=== PATIENT | female | born 2005 | race Caucasian/White ===

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

== ENCOUNTER 2023-03-15 13:38 | Emergency (ER) | payer MEDICAID, SELFPAY ==
[2023-03-15 13:47] VITALS: BP 130/76; PULSE 117; RESP 16; TEMP 37; O2SAT 98; BMI 20.7
--- NOTE | 2023-03-15 13:50 | ED.GENADULT ---
HPI - General Adult General Chief complaint: Upper Respiratory Symptoms Stated complaint: throat pain, trouble swallowing and speaking Time Seen by Provider: 03/15/23 14:45 Source: patient, RN notes reviewed and old records reviewed Mode of arrival: ambulatory Limitations: no limitations History of Present Illness HPI narrative: 17-year-old female presents for evaluation of sore throat over last 2 days She also reports subjective fevers and chills She reports pain with swallowing and speaking. She is able to speak and manage her secretions She reports a history of strep throat this past fall and was treated with antibiotics Denies any known sick contacts Related Data Previous Rx's Medication Instructions Recorded amoxicillin 875 mg-potassium 1 tab PO Q12H #14 tabs 03/15/23 clavulanate 125 mg tablet Allergies Allergy/AdvReac Type Severity Reaction Status Date / Time No Known Allergies Allergy Verified 03/15/23 13:47 Review of Systems Constitutional: Constitutional: Reports chills and Reports fever(s) ENT: Reports sore throat and Denies throat swelling Cardiovascular: Cardiovascular: Denies dyspnea Respiratory: Respiratory: Denies cough and Denies dyspnea Musculoskeletal: Musculoskeletal: Denies back pain Allergic/Immunologic: Allergic/Immunologic: Denies throat swelling PMFSH Social History Social History Advance Directives: No Physical Exam ED Vital Signs: Vital Signs - 24 hr 03/15/23 13:47 Temperature 98.6 F Pulse Rate 117 H Respiratory Rate 16 Blood Pressure 130/76 Pulse Oximetry 98 Oxygen Delivery Method Room Air BMI result Body Mass Index 20.7 Const General: healthy appearing, comfortable, no acute distress, alert and awake Nutritional Appearance: well nourished Orientation/consciousness: patient oriented x3 HENMT Other: Patient has bilateral tonsillar hypertrophy with whitish exudates and erythematous oropharynx. No evidence of peritonsillar abscess. And remains widely patent Head: Yes normocephalic and Yes atraumatic Eyes Eyelids: Yes eyelids normal Conjunctivae: conjunctivae normal Sclerae: sclerae normal Corneas: corneas normal Pupils: Equal, round and reactive pupils present EOM: EOMs intact bilaterally Neck Neck: Yes full ROM Resp Effort & Inspection: normal respiratory effort, able to speak in complete sentences and not labored Neuro General: patient oriented x3 Cranial nerves: Yes Equal, round and reactive pupils present and Yes Bilaterally intact EOM present Cognition (Neuro): normal cognition Extrem Other: Moving all extremities well without any obvious deformities Course Course Course Narrative: RME- 17 year female presents for evaluation sore throat that started yesterday. She reports difficulty speaking and pain with swallowing. Reports subjective fevers take her temperature. She reports she had a similar episode last fall was treated for strep throat. Plan for swabs. Medical Decision Making Medical Decision Making [facility] Narrative: 17-year-old female presents for evaluation sore throat. She tested positive for strep throat. Will treat with Augmentin b.i.d. x7 days. Differential Diagnosis Differential Diagnoses: The differential diagnosis associated with the presentation includes Strep throat Pharyngitis Upper respiratory infection Influenza COVID-19 Lab Data Labs: Lab Results 03/15/23 Range/Units 14:19 COVID-19 (JEVON) Negative (Negative) COVID-19 Clin Com See Note S. pyogenes GrpA GEORGE Positive A (Negative) Discharge Plan Discharge Clinical Impression: Acute streptococcal pharyngitis Patient Disposition: Home, Self-Care Instructions: Strep Throat (ED) Additional Instructions: You tested positive for strep throat Take Augmentin twice daily for 1 week You may use Motrin/Tylenol for fevers, body aches You may also use saltwater gargles Return for new or worsening symptoms I recommend that you change your toothbrush after you finish her last dose of antibiotics Prescriptions: New amoxicillin-pot clavulanate 875-125 mg tablet 1 tab PO Q12H Qty: 14 0RF Stand Alone Forms: Work/School Release
[2023-03-15 14:38] LABS: IDNOW Serial# 08D9AD1C; Strep A Nucleic Acid Positive (Negative)
[2023-03-15 14:46] LABS: COVID-19 Test Negative (Negative); IDNOW Serial# 9DB6401D
[2023-03-15 15:08] LABS: IDNOW Serial# 58CA691E; Influenza A Negative (Negative); Influenza B2 Negative (Negative)
== END 2023-03-15 14:54 | disposition home or self-care (01) ==
PROVIDERS: Physician Assistant; Emergency Provider Emergency Medicine Emergency Medical Services; PCP Pediatrics
DX: J02.0 Streptococcal pharyngitis (principal); Z11.52 Encounter for screening for COVID-19
CPT/HCPCS: 87502; 87635; 87651; 99282; 99283

== ENCOUNTER 2024-01-20 19:30 | Emergency (ER) | payer MEDICAID, SELFPAY ==
[2024-01-20 19:49] VITALS: BP 107/57; PULSE 108; RESP 20; TEMP 37.1; O2SAT 99; BMI 21.3
--- NOTE | 2024-01-20 19:52 | ED_ITS ---
HPI - General Adult General Chief complaint: Wound/Laceration Stated complaint: LT thumb lac Time Seen by Provider: 01/20/24 22:25 History of Present Illness ED Provider: Kamilah WHITE narrative: The patient is a 18-year-old female who was preparing some vegetables using a mandolin slicer. She accidentally sliced off the tip of her left thumb and had bleeding that would not stop. Related Data Previous Rx's ?Medication ?Instructions ?Recorded amoxicillin 875 mg-potassium 1 tab PO Q12H #14 tabs 03/15/23 clavulanate 125 mg tablet Allergies Allergy/AdvReac Type Severity Reaction Status Date / Time No Known Allergies Allergy Verified 01/20/24 19:53 Review of Systems Review of Systems: Yes all other systems are reviewed and are negative [facility] Social History Social History Smoked in Last 30 Days: Yes Substance Use Type: Marijuana Advance Directives: No Advance Directives Information Provided: No Do you have a plan to hurt others: No Plan Patient : No Physical Exam ED Vital Signs: Vital Signs - 24 hr 01/20/24 19:49 01/20/24 22:12 01/20/24 23:22 Temperature 98.8 F 98.5 F 98.5 F Pulse Rate 108 H 93 88 Respiratory Rate 20 15 16 Blood Pressure 107/57 L 115/46 L 98/52 L Pulse Oximetry 99 97 98 Oxygen Delivery Method Room Air Room Air Room Air BMI result Body Mass Index 21.3 Const Other: The patient has the appearance of a not nearly healthy and fit 18-year-old. To does not appear in acute distress. She had a dressing on the tip of her left thumb. HENMT Other: Head and face were unremarkable. Mucous membranes moist. Eyes General: appearance normal, both eyes and all related structures Neck Neck: Yes full ROM Resp Effort & Inspection: normal respiratory effort Skin Other: The patient has injury to the skin of the tip of the left thumb. There has been an avulsion of an oval shaped area of skin about 7 mm in its longer dimension. blood was oozing from the avulsion injury. Neuro Other: The patient is awake and alert neurologically intact. Extrem Other: There is a small area of avulsed skin the very tip of the left thumb. This does not involve the thumb nail. The wound was oozing blood. Course Course Course Narrative: This is an RME done by DARWIN Watson: Additional HPI, ROS, PE not included below will be deferred to primary provider. 18-year-old female presents with l aceration to the left thumb distal aspect she cut herself on a mandoline cutter. Medications Administered Discontinued Medications Generic Name Dose Route Start Last Admin Trade Name Corey PRN Reason Stop Dose Admin Diphtheria/Tetanus/Acell Pertussis 0.5 ml 01/20/24 19:52 01/20/24 22:15 Diphth,Pertus(Acell),Tet Adult 0.5 Ml Syringe IM 01/20/24 19:53 0.5 ml .ONCE ONE Administration Medical Decision Making Medical Decision Making MDM Narrative: The patient presents with a finger tip avulsion injury while cutting vegetables with a mandoline slicer. Wound is clean. The patient is healthy. A Surgicel dressing was applied and a nonstick dressing was applied over the Surgicel. The patient was observed. I took down the regional dressing except for the Surgicel which was left in place. There not seem to be any ongoing bleeding at that point. A nonstick dressing was reapplied over the Surgicel and then wrapped with ribbon gauze. The patient will be discharged with instructions replace the outer gauze and a nonstick pad on Tuesday. Two days after that, on Tuesday, she should try to soak off the Surgicel in cold water. My hope is at that point that the wound will no longer be bleedi ng.. She should return to the emergency room with any problems. She was provided with supplies for dressing changes. Discharge Plan Discharge Clinical Impression: Avulsion of finger tip Patient Disposition: Home, Self-Care Instructions: Skin Avulsion (ED) Additional Instructions: The type of injury you sustained today is called an avulsion injury. Wounds like this are notorious for bleeding a great deal. I applied a kind of dressing called Surgicel. This is a special kind of gauze that helps stopped bleeding. Please keep the current dressing on in place until Tuesday. At that point you may remove the rolled gauze and the nonstick pad. Leave the Surgicel (the bottom layer) in place. Reapply a nonstick pad and cover this with the roll gauze. Then keep that dressing in place until Tuesday when you may try to use cold water to soak off the Surgicel. My hope is at that point you will not have ongoing bleeding. Contact your regular doctor for additional advice as needed. Return to the emergency room if significantly worse. Prescriptions: No Action amoxicillin-pot clavulanate 875-125 mg tablet 1 tab PO Q12H Qty: 14 0RF Referrals: Nimo Lopez MD [Primary Care Provider] - (Fingertip avulsion injury) Interventions: ED Discharge Assessment Last Done: 01/20/24 23:22 Discharge Date/Time: 01/20/24 23:22 Print Language: Albanian
[2024-01-20 22:12] VITALS: BP 115/46; PULSE 93; RESP 15; TEMP 36.9; O2SAT 97
[2024-01-20] MEDS: Diphth,Pertus(ACell),Tet Adult 0.5 ML SYRINGE IM (22:15)
[2024-01-20 23:22] VITALS: BP 98/52; PULSE 88; RESP 16; TEMP 36.9; O2SAT 98
== END 2024-01-20 23:22 | disposition home or self-care (01) ==
PROVIDERS: Emergency Provider Emergency Medicine; PCP Pediatrics
DX: S61.012A Laceration without foreign body of left thumb without damage to nail, initial encounter (principal); W27.8XXA Contact with other nonpowered hand tool, initial encounter; Y93.G1 Activity, food preparation and clean up; Y92.010 Kitchen of single-family (private) house as the place of occurrence of the external cause; Y99.9 Unspecified external cause status; Z23 Encounter for immunization
CPT/HCPCS: 12001; 90471; 90715; 99284

== ENCOUNTER 2024-04-17 11:58 | Outpatient (REF) | payer MEDICAID, SELFPAY ==
--- OUTSIDE RECORDS SUMMARY | 2024-04-17 15:07 | XMS_ITS | Encounter Summary ---
Author Organization [employer] Address [address] [facility] [address] [place] [address] Care Team Providers Care Agronomy Location Manager Name Role Phone Nimo Lopez MD Primary Care Provider [phone] Encounter Details Date Type Department Care Team (Latest Contact Info) Description 2024 Travel Social History Tobacco Use Types Packs/Day Years Used Date Smoking Tobacco: Never Passive Smoke Exposure: Never Smokeless Tobacco: Never Alcohol Use Standard Drinks/Week Comments Never 0 (1 standard drink = 0.6 oz pur e alcohol) Depression Answer Date Recorded Patient Health Questionnaire-9 Score 9 01/26/2024 Patient Health Questionnaire-9 Score 9 01/26/2024 Last PHQ-9: Questionnaire Data Not on file 1 03/28/2023 Housing Stability Answer Date Recorded What is your housing situation today? I have shaw lindsay 01/26/[address] you li ve. Do you have problems with any of the following? None of the above 01/26/2024 Food Insecurity Answer Date Recorded Within the past 12 months, y ou worried that your food would run out before you got money to buy more: Never True 01/26/2024 Within the past 12 months,th e food you bought just didn't last and you didn't have enough money to get more: Never True 01/2024 Transportation Answer Date Recorded In the past 12 months, has l ack of transportation kept you from medical appts, meetings, work or from getting things needed for daily living? No 01/26/2024 Utilities Answer Date Recorded In the past 12 months, has t he electric, gas, oil or water company threatened to shut off services in your home? No 01/26/2024 Depression Answer Date Recorded Patient Health Questionnaire-2 Score 3 01/26/2024 Internet Access Answer Date Recorded Internet Access Q1 Yes 01/26/2024 Internet Access Q2 Not on file 01/26/2024 Comments No Sex and Gender Information Value Date Recorded Sex Assigned at Female 12/14/2021 10:22 AM EDT Legal Sex Female 10:22 AM EDT Gender Identity Female 12/14/2021 10:22 AM EDT Sexual Orientation Don't know 12/14/2021 10 :22 AM EDT documented as of this encounter Plan of Treatment Upcoming Encounters Date Type Department Care Team ([facility] st Contact Info) Description 05/15/2024 11:15 AM EDT Office Visit [facility] MED & PEDS [address] [place] [address] Omar Mchugh MD [address] [place] [address] documented as of this encounter Visit Diagnoses Not on filedocumented in this encounter Additional Health Concerns Assessment Noted Time PHQ-9 Depression Total Score: 9 01/26/20 24 2:09 PM EST documented as of this encounter Care Teams Agronomy Location Manager Relationship Specialty Start Date End Date Nimo Lopez MD [address] [place] [address] PCP - General Family Medicine 05/20/11 documented as of this encounter
--- OUTSIDE RECORDS SUMMARY | 2024-04-17 15:07 | XMS_ITS | Encounter Summary ---
Author Organization [employer] Address [address] [facility] [address] [place] [address] Care Team Providers Care Finisher Card Tender Name Role Phone Nimo Lopez MD Primary Care Provider Encounter Details Date Type Department Care Team (Latest Contact Info) Description 04/17/2024 9:00 AM EST Procedure Visit [facility] MED & PEDS [address] [place], [place] [id number] Nimo Lopez MD [address] [place] [address] Encounter for gynecological examination with Papanicolaou smear of cervix (Primary Dx); Vulvar rash Social History Tobacco Use Types Packs/Day Years [...] AM EDT documented as of this encounter Last Filed Vital Signs Vital Sign Reading Time Taken Comments Blood Pressure 110/63 04/17/2024 8:57 AM EST Pulse 68 04/17/2024 8:57 AM EST Temperature 37.2 ??C (98.9 ??F) 04/17/2024 8:57 AM ES T Respiratory Rate 20 04/17/2024 8:57 AM EST Oxygen Saturation 98% 04/17/2024 8:57 AM EST Inhaled Oxygen Concentration - - Weight 50.1 kg (110 lb 6.4 oz) 04/17/2024 8:57 A M EST Height 153 cm (5' 0.24 ) 04/17/2024 8:57 AM EST Body Mass Index 21.39 04/17/2024 8:57 AM EST documented in this encounter Progress Notes * Nimo Lopez MD - 04/17/2024 9:00 AM EST Images from the original note were not included. Subjective Lucas Rich is a 19 y.o. No obstetric history on file. woman here for pap. LMP:03/22/24 Menses frequency:monthly Menses concerns:none Desires within the next year:no Brith control:ortho evra patches Breast concerns:none Negative for: pain or lumps Review of Systems Review of Systems Constitutional: Negative for activity change, chills, fever and unexpected weight change. Respiratory: Negative for cough, shortness of breath and wheezing. Cardiovascular: Negative for chest pain, palpitations and leg swelling. Gastrointestinal: Negative for abdominal pain and blood in stool. Endocrine: Negative for polydipsia and polyuria. Genitourinary: Positive for vaginal discharge. Negative for decreased urine volume, difficulty urinating, dysuria, hematuria, menstrual problem and vaginal bleeding. Musculoskeletal: Negative for arthralgias and gait problem. Skin: Positive for rash. Negative for color change. Neurological: Negative for dizziness and headaches. Hematological: Negative for adenopathy. Psychiatric/Behavioral: Negative for dysphoric mood, hallucinations, sleep disturbance and suicidalideas. The patient is not nervous/anxious. No results found for: PAPPA No results found for: [place] Previous paps:never Mammogram: Objective Visit Vitals BP 110/63 (BP Location: Right arm, Patient Position: Sitting, BP Cuff Size: Adult) Pulse 68 Temp 98.9 ??F (37.2 ??C) (Oral) Resp 20 Physical Exam Vitals reviewed. Exam conducted with a processing spec present. Constitutional: Appearance: Normal appearance. Cardiovascular: Rate and Rhythm: Normal rate and regular rhythm. Chest: Chest wall: No mass, deformity or tenderness. Breasts: Matias Score is 5. Right: Normal. No bleeding, inverted nipple, mass, nipple discharge, skin change or tenderness. Left: Normal. No bleeding, inverted nipple, mass, nipple discharge, skin change or tenderness. Genitourinary: Exam position: Lithotomy position. Matias stage (genital): 5. Labia: Right: Rash present. No lesion or injury. Left: Rash present. No lesion or injury. Vagina: Normal. Cervix: No cervical motion tenderness, friability, lesion or erythema. Uterus: Normal. Not tender. Adnexa: Right: No mass, tenderness or fullness. Left: No mass, tenderness or fullness. Comments: Erythema introitus, labias,groin area Lymphadenopathy: Upper Body: Right upper body: No axillary adenopathy. Left upper body: No axillary adenopathy. Problem List Items Addressed This Visit None Visit Diagnoses Encounter for gynecological examination with Papanicolaou smear of cervix - Primary Relevant Orders Pap Smear Bacterial Vaginosis Panel Chlamydia/N. Gonorrhoeae RNA, TMA, Urogenitial Pap with HPV testing done STI testing offered, PreP offered Preventative care and harm reduction discussed documented in this encounter Plan of Treatment Upcoming Encounters Date Type Department Care Team (Late st Contact Info) Description 05/15/2024 11:15 AM EDT Office Visit [facility] MED & PEDS [address] [place] [address] Omar Mchugh MD [address] [place] [address] Scheduled Orders Name Type Priority Associated Diagnoses Orde r Schedule Pap Smear Pathology and Cytology Routine Encounter for gynecological examination with Papanicolaou smear of cervix Ordered: 04/17/2024 Bacterial Vaginosis Panel Microbiology Routine Encounter for gynecological examination with Papanicolaou smear of cervix Ordered: 04/17/2024 Chlamydia/N. Gonorrhoeae RNA, TMA, Urogenitial Microbiology Routine Encounter for gynecological examination with Papanicolaou smear of cervix Ordered: 04/17/2024 documented as of this encounter Visit Diagnoses Diagnosis Encounter for gynecological examination with Papanicolaou smear of cervix- Primary Vulvar rash documented in this encounter Additional Health Concerns Assessment Noted Time PHQ-9 Depression Total Score: 9 01/26/20 24 2:09 PM EST documented as of this encounter Care Teams Finisher Card Tender Relationship Specialty Start Date End Date Nimo Lopez MD [address] [place] [address] PCP - General Family Medicine 05/20/11 documented as of this encounter
--- OUTSIDE RECORDS SUMMARY | 2024-04-17 15:07 | XMS_ITS | Encounter Summary ---
Author Organization [employer] Address [address] [facility] [address] [place] [address] Care Team Providers Care Educational Sign Language Interpreter Name Role Phone Nimo Lopez MD Primary Care Provider [phone] Reason for Visit * Reason Onset Date Comments Nurse Triage 03/19/2024 Encounter Details Date Type Department Care Team (Late st Contact Info) Description 03/19/2024 Telephone [facility] MEDICINE [address] [place] [address] Nimo Lopez MD [address] [place] [address] Nurse Triage Social History Tobacco Use Types Packs/Day Years [...] AM EDT documented as of this encounter Miscellaneous Notes * Telephone Encounter - Brooklynn Egan RN - 03/19/2024 3:46 PM EST Triage call Pt reports recurrent rash in the vaginal area. Pt has been using tramcinalone 0.1% cream last ordered 01/26/24 without effect. Pt reports rash is spreading to upper thighs and surroundingarea no blisters seen just itchy, red and irritated. Pt is offered to come to [facility] today to be seen by provider but, declines. Pt is given home care advice. ASK apt with PCP 03/27/24 @ 1115am. Pt agrees with disposition. Insurance is verified as active. Protocol Used: Rash or Redness - Localized (Adult) Protocol-Based Disposition: See in Office or Video Visit within 3 Days Override (Final) Disposition: See in Office or Video Visit within 2 Weeks Override Reason: Other Video visit not offered Positive Triage Question: * Localized rash present > 7 days * All higher-acuity triage questions were negative Care Advice Discussed: * Reassurance and Education - Mild Localized Rash * Wash the Area * Don't Scratch * Reasons To Call Back - Rash spreads or becomes worse - Rash lasts longer than 1 week - You become worse * Telephone Encounter - Camron Das - 03/19/2024 3:30 PM EST Tc from pt returning call. * Telephone Encounter - Mekhi Granadosarez - 03/19/2024 2:12 PM EST Symptom: Rash or Redness on One Body Area Only Outcome: Schedule an appointment to be seen within 3 days Reason: Caller denied all higher acuity questions The caller accepted this outcome. documented in this encounter Plan of Treatment Upcoming Encounters Date Type Department Care Team (Late st Contact Info) Description 05/15/2024 11:15 AM EDT Office Visit [facility] CHC MED & PEDS [address] [place] [address] Omar Mchugh MD [address] [place] [address] documented as of this encounter Visit Diagnoses Not on filedocumented in this encounter Additional Health Concerns Assessment Noted Time PHQ-9 Depression Total Score: 9 01/26/20 24 2:09 PM EST documented as of this encounter Care Teams Educational Sign Language Interpreter Relationship Specialty Start Date End Date Nimo Lopez MD [address] [place] [address] PCP - General Family Medicine 05/20/11 documented as of this encounter
--- OUTSIDE RECORDS SUMMARY | 2024-04-17 15:07 | XMS_ITS | Encounter Summary ---
Author Organization [employer] Address [address] [facility] [address] [place] [address] Care Team Providers Care Distance Learning Technician Name Role Phone Nimo Lopez MD Primary Care Provider [phone] Encounter Details Date Type Department Care Team (Latest Contact Info) Description 04/17/2024 Travel Social History Tobacco Use Types Packs/Day [...] Upcoming Encounters Date Type Department Care Team ([facility] st Contact Info) Description 05/15/2024 11:15 AM EDT Office Visit [facility] CHC MED & PEDS [address] [place] [address] Omar Mchugh MD [address] [place] [address] documented as of this encounter Visit Diagnoses Not on filedocumented in this encounter Additional Health Concerns Assessment Noted Time PHQ-9 Depression Total Score: 9 01/26/20 24 2:09 PM EST documented as of this encounter Care Teams Distance Learning Technician Relationship Specialty Start Date End Date Nimo Lopez MD [address] [place] [address] PCP - General Family Medicine 05/20/11 documented as of this encounter
--- OUTSIDE RECORDS SUMMARY | 2024-04-17 15:07 | XMS_ITS | Clinical Summary ---
Author Organization [facility] it Address [address] [place] [address] Care Team Providers Care Superintendent Sanitation Name Role Phone Unavailable Primary Care Provider Unavailabl e Social History Tobacco Use Types Packs/Day Years Used Date Smoking Tobacco: Never Assessed Comments Unknown Sex and Gender Information Value Date Recorded Sex Assigned at Not on file Legal Sex Female 8:11 PM EST Gender Identity Not on file Sexual Orientation Not on file Plan of Treatment Health Maintenance Due Date Last Done Comments Gonorrhea/Chlamydia Screening 2003 HPV Vaccines (1 - 3-dose series) 2018 Meningococcal B Vacine (1 of 2 - Standard) 2019 DTaP,Tdap,and Td Vaccines (1 - Tdap) 2022 Hepatitis B Vaccines (1 of 3 - 19+ 3-dose series) 2022 Annual Well Child Visit (3-2 1 years old) 03/10/2023 Depression Screening 03/10/2023 HIV Screening 03/10/2023 Hepatitis C Screening 03/10/2023 Social Influencers of Health Screening 03/10/2023 COVID-19 Vaccine ( - 2023-2 5 season) 2023 Influenza Vaccine (#1) 2023 Cervical Cancer Screening: P ap Smear 2024 HIB Vaccines Aged Out No longer eligi ble based on patient's age to complete this topic Hepatitis A Vaccines Aged Out No long er eligible based on patient's age to complete this topic IPV Vaccines Aged Out No longer eligi ble based on patient's age to complete this topic MMR Vaccines Aged Out No longer eligi ble based on patient's age to complete this topic Meningococcal ACWY Vaccine Aged Out N o longer eligible based on patient's age to complete this topic Pneumococcal Vaccine: Pediat rics (0 to 5 Years) and At-Risk Patients (6 to 64 Years) Aged Out No longer eligible b ased on patient's age to complete this topic RSV Immunization Patients Un jose enrique 20 months Aged Out No longer eligible b ased on patient's age to complete this topic Varicella Vaccines Aged Out No longer eligible based on patient's age to complete this topic
--- OUTSIDE RECORDS SUMMARY | 2024-04-17 15:07 | XMS_ITS | Clinical Summary ---
Author Organization [email or web address] Address [address] [facility] 7t [place] [address] Care Team Providers Care Quill Reamer Name Role Phone Nimo Lopez MD Primary Care Provider [phone] Allergies No known active allergies Medications * This document contains information received from the source organization and may not represent a complete record from that organization. loratadine (Claritin) 10 MG tablet Take 1 tablet (10 mg) by mouth Once per day. 90 tablet 5 01/26/20 24 Active diphenhydrAMIN E (BENADryl) 25 MG tablet Take 1 tablet (25 mg) by mouth every 8 (eight) hours if needed for itching or allergies. 30 tablet 11 03/27/19 25 025 Active triamcinolone (Kenalog) 0.025 % ointment Apply topically 2 times daily. 80 g 2 03/27/19 25 Active norelgestromin -ethinyl estradiol (Ortho-Evra) 150-35 MCG/24HR Apply 1 patch each week for 3 weeks, then remove for 1 week. 9 patch 12 04/18/19 25 026 Active loratadine (Claritin) 10 MG tablet TAKE 1 TABLET BY MOUTH EVERY DAY 90 tablet 1 07/03/19 23 025 Discontinued( erapy completed) triamcinolone (Kenalog) 0.1 % cream Apply topically 2 times daily. 45 g 11 01/26/20 24 025 Discontinued(In effective) norelgestromin -ethinyl estradiol (Ortho-Evra) 150-35 MCG/24HR Apply 1 patch each week for 3 weeks, then remove for 1 week. 9 patch 12 01/26/20 24 025 Discontinued(Re order (will not trigger notification to Pharmacy)) Active Problems Problem Noted Date Diagnosed Date Eczema 01/26/2024 Seasonal allergies 07/11/2018 Encounters * This document contains information received from the source organization and may not represent a complete record from that organization. Date Type Department Care Team Description 04/17/2024 9:00 AM EST Procedure Visit [facility] [address] [place] [address] Nimo Lopez MD Encounter for gynecological examination with Papanicolaou smear of cervix (Primary Dx); Vulvar rash 04/17/2024 Travel 04/13/2024 Telephone [facility] [address] [place] [address] Nimo Lopez MD CHART PREP 2024 11:15 AM EST Office Visit [facility] [address] [place] [address] Nimo Lopez MD Seasonal allergies (Primary Dx); Vulvar rash 2024 Travel 03/19/2024 Telephone [facility] [address] [place] [address] Nimo Lopez MD Nurse Triage 02/10/2024 8:00 AM EST Office Visit [facility] ADULT DENTAL [address] [place] [address] Michelle Shipley 02/09/2024 10:00 AM EST Office Visit [facility] [address] [place] [address] Nina Mike Dental calculus (Primary Dx) 01/26/2024 2:15 PM EST Office Visit [facility] [address] [place] [address] Nimo Lopez MD Encounter for immunization (Primary Dx); Routine general medical examination at a health care facility; Seasonal allergies; Other eczema; control counseling; Anxiety associated with depression 01/26/2024 Travel 01/24/2024 Telephone [facility] [address] [place] [address] Nimo Lopez MD Chart Prep 01/24/2024 Telephone [facility] MED & PEDS [address] [place] [address] Nimo Lopez MD from Last 3 Months Immunizations Name Administration Dates Next Due DTaP 07/04/2007, 5,2003,07/29,2003 HPV 9-Valent 04/07/2015,10/25/2014 HPV, Quadrivalent 06/09/2012 Hep A, ped/adol, 2 dose 10/25/2014,10/23/2013 Hep B, Adolescent or Pediatric 03/26/2004,2003,2003 Hib (HbO) 06/30/2004, 4,2003,06/04 IPV 07/04/2007, 5,2003,06/04 Influenza injectable quadriv alent preservative free 12/13/2019,12/07/2018,11/23/2017,10/28,11/12/2014 Influenza, IIV3, injectable 01/19/2011, 0,12/03/2008 Influenza, Split (incl. darinel fied surface antigen) 12/18/2012 Influenza, injectable, quadr ivalent, preservative free, pediatric 11/17/2016 Influenza, seasonal, injecta ble, preservative free 01/26/2024 MMR 07/04/2007,03/26/2004 Meningococcal MCV4P ACYW-135 10/25/2014 Pneumococcal Conjugate PCV 7 06/30/2004, 2003,2003,06/04 Tdap 01/20/2024,11/12/2014 Varicella 07/04/2007,03/26/2004 Social History Tobacco Use Types Packs/Day Years Used Date Smoking Tobacco: Never Passive Smoke Exposure: Never Smokeless Tobacco: Never Tobacco Cessation:Counseling Given: Not Answered Alcohol Use Standard Drinks/Week Comments Never 0 [...] Don't know 12/14/2021 10 :22 AM EDT Last Filed Vital Signs Vital Sign Reading [...] Mass Index 21.39 04/17/2024 8:57 AM EST Plan of Treatment Upcoming Encounters Date Type Department Care Team (Late st Contact Info) Description 05/15/2024 11:15 AM EDT Office Visit [facility] & [facility] [address] [place] [address] Omar Mchugh MD [address] [place] [address] Health Maintenance Due Date Last Done Comments HIV Screening 2003 Hepatitis C Screening 2021 Pneumococcal Vaccine: Pediatrics (0 to 5 Years) and At-Risk Patients (6 to 49) Years) (1 of 2 - PCV) 2022 06/30/2004, 2003, 2003, Additional history exists Chlamydia and Gonorrhea Screening 07/29/2023 07/28/2022, 06/04/2021 COVID-19 Vaccine ( season) 2023 07/10/2020, 06/19/2020 Pap Smear 2024 Depression Monitoring (PHQ-9) 07/26/2024 01/26/2024, 01/26/2024 Dental Oral Exam 08/10/2024 02/09/2024, , 06/28/2014, Additional history exists Dental Prophylaxis 08/10/2024 02/09/2024, 1 03/05/2014, 06/28/2014, Additional history exists Alcohol/Substance Use Screening 01/25/2025 01/26/2024 Depression Screening 01/25/2025 01/26/2024, 01/26/20 SDOH Screening 01/25/2025 01/26/2024 Dental X-Ray: Bitewings 02/09/2025 02/09/20 24, 01/03/2015, 04/17/2014, Additional history exists Family Planning (PISQ) 2025 2024 Tobacco Screening 2025 2024 Dental X-Ray: Full Mouth 02/09/2027 024, 12/18/2012, 12/18/2012 DTaP/Tdap/Td Vaccines (8 - Td or Tdap) 01/19/2034 01/20/2024, 11/12/2014, 07/04/2007, Additional history exists Zoster Vaccines (1 of 2) 2053 RSV Patients and Patients Aged 60 years or older (1 - 1-dose 75+ series) 2078 Hepatitis B Vaccines Completed 03/26/2004, 2003, 2003 HIB Vaccines Completed 06/30/2004, 09/14, 2003, Additional history exists IPV Vaccines Completed 07/04/2007, 03/17, 2003, Additional history exists Hepatitis A Vaccines Completed 10/25/2014, 10/24/19 14 Meningococcal Vaccine Aged Out 10/25/2014 No rah sarah eligible based on patient's age to complete this topic HPV Vaccines Completed 04/07/2015, 10/15, 06/09/2012 Influenza Vaccine Completed 01/26/2024, , 12/07/2018, Additional history exists RSV under 20 months Aged Out No longe r eligible based on patient's age to complete this topic Rotavirus Vaccines Aged Out No longer eligible based on patient's age to complete this topic Procedures Procedure Name Priority Date/Time Associated Diagnosis Comments CASE PRESENTATION, DETAILED AND EXTENSIVE TREATMENT PLANNING Routine 02/10/2024 8:00 AM EST 31 MO RESIN-BASED COMPOSITE - 2 SURF, POSTERIOR Routine 02/10/2024 8:00 AM EST 30 DO RESIN-BASED COMPOSITE - 2 SURF, POSTERIOR Routine 02/10/2024 8:00 AM EST COMPREHENSIVE ORAL EVALUATION - NEW OR ESTABLISHED PATIENT Routine 02/09/2024 10:00 AM EST INTRAORAL - COMPLETE SERIES OF RADIOGRAPHIC IMAGES Routine 02/09/2024 10:00 AM EST ORAL HYGIENE INSTRUCTIONS Routine 02/09/2024 10:00 AM EST CASE PRESENTATION, DETAILED AND EXTENSIVE TREATMENT PLANNING Routine 02/09/2024 10:00 AM EST PROPHYLAXIS - ADULT Routine 02/09/2024 1 0:00 AM EST CHLAMYDIA/N. GONORRHOEAE RNA, TMA, UROGENITAL Routine 07/28/2022 10:26 AM EDT Screen for sexually transmitted diseases from Last 3 Months or Most Recently Relevant to Health Maintenance Results * Chlamydia/N. Gonorrhoeae RNA, TMA, Urogenitial (07/28/2022 10:26 AM EDT) Chlamydia trachomatis RNA, TMA, Urogenital NOT DETECTED NOT DETECTED [employer] [place] [facility] Neisseria gonorrhoeae RNA, TMA, Urogenital NOT DETECTED NOT DETECTED [employer] [place] [employer] (Always Message) [facility] [place] [employer] Comment: The analytical performance characteristics of this assay, when used to test SurePath(TM) specimens have been determined by [employer] The modifications have not been cleared or approved by the FDA. This assay has been validated pursuant to the CLIA regulations and is used for clinical purposes. For additional information, please refer to https://education.Molecular Imaging/faq/LAQ745 (This link is being provided for information/ educational purposes only.) Swab (Vaginal Swab) 07/28/2022 10:26 AM EDT 07/29/2022 4:13 AM EDT Nimo Lopez MD LAB MICROBIOLOGY - GENERAL OR DERABLES Final Result [facility] [address], [place] [address] [employer] [place] [facility] [address] [place] [address] from Last 3 Months or Most Recently Relevant to Health Maintenance [place] [address] [place] [address] [facility] Care Teams Quill Reamer Relationship Specialty Start Date End Date Nimo Lopez MD [address] [place] [phone] PCP - General Family Medicine 05/20/11
--- OUTSIDE RECORDS SUMMARY | 2024-04-17 15:07 | XMS_ITS | Encounter Summary ---
Author Organization [employer] Address [address] [facility] 7t [place] [address] Care Team Providers Care Caretaker Name Role Phone Nimo Lopez MD Primary Care Provider [phone] Encounter Details Date Type Department Care Team ([facility] st Contact Info) Description 2024 11:15 AM EST Office Visit [facility] & PEDS [address] [place], [place] [phone] Nimo Lopez MD [address] [place] [address] Seasonal allergies (Primary Dx); Vulvar rash Social History Tobacco [...] your housing situation today? I have shaw angélica 01/26/[address] you li [...] Sign Reading Time Taken Comments Blood Pressure 115/65 2024 11:15 AM EST Pulse 87 2024 11:15 AM EST Temperature 36.3 ??C (97.4 ??F) 2024 11:[address] Respiratory Rate 16 2024 11:15 AM EST Oxygen Saturation 97% 2024 11:15 AM EST Inhaled Oxygen Concentration - - Weight 48.5 kg (107 lb) 2024 11:15 AM EST Height 152.4 cm (5') 2024 11:15 AM EST Body Mass Index 20.9 2024 11:15 AM EST documented in this encounter Progress Notes * Nimo Lopez MD - 2024 11:15 AM EST Subjective Patient ID: Lucas Rich is a 18 y.o. female who presents for rash. Lucas is a 19-year-old female patient with past medical history of mild eczema that uses CeraVe or Eucerin cream as needed as well as loratadine and Benadryl for seasonal allergies here for persistent vulvar rash that is pruritic. Rash improved with twice daily use of 0.1% triamcinolone cream but has now returned. Patient ran out of cream a while ago. Denies use of new soap, detergent, detergent,underwear, lubricant, etc. denies any vaginal discharge, UTI symptoms etc. patient is on hormonal patch for control and tolerating it well. Review of Systems Skin: Positive for rash. Allergic/Immunologic: Positive for environmental allergies. Objective BP 115/65 (BP Location: Left arm, Patient Position: Sitting, BP Cuff Size: Adult) Pulse87 Temp 97.4 ??F (36.3 ??C) (Oral) Resp 16 Ht 5' (1.524 m) Wt 107 lb (48.5 kg) SpO2 97% BMI 20.90 kg/m?? Physical Exam Vitals reviewed. Constitutional: General: She is not in acute distress. Appearance: She is normal weight. Genitourinary: Pubic Area: Rash present. Labia: Right: Rash present. Left: Rash present. Vagina: Erythema present. No vaginal discharge or lesions. Musculoskeletal: Right lower leg: No edema. Left lower leg: No edema. Lymphadenopathy: Lower Body: No right inguinal adenopathy. No left inguinal adenopathy. Neurological: Mental Status: She is alert. Assessment/Plan Diagnoses and all orders for this visit: Seasonal allergies Comments: Symptoms stable on and benadryl prn.Both refilled today.Declines needing allergy referral etc.. Avoid allergens. Vulvar rash Comments: Consultation with Dr. Mchugh done today. 0.25% triamcinolone ointment twice a day to affected area started, return to clinic April 17 for follow-up. Possible allergens disccussed to avoid.?lichen plannus also a possible diagnosis.Needs her first pap smear clinic scheduled and an appointment for this matter was booked with me on april 17 on a Tuesday when derm clinic is also happening in case her dermatitis is not improved and she needs a second opinion.Patient agrees. Other orders - diphenhydrAMINE (BENADryl) 25 MG tablet; Take 1 tablet (25 mg) by mouth every 8 (eight) hours if needed for itching or allergies. - triamcinolone (Kenalog) 0.025 % ointment; Apply topically 2 times daily. documented in this encounter Plan of Treatment Upcoming Encounters Date Type Department Care Team (Late st Contact Info) Description 05/15/2024 11:15 AM EDT Office Visit [facility]EDS [address] [place] [address] Omar Mchugh MD [address] [place] [address] documented as of this encounter Visit Diagnoses Diagnosis Seasonal allergies- Primary Allergic rhinitis, cause unspecified Vulvar rash documented in this encounter Additional Health Concerns Assessment Noted Time PHQ-9 Depression Total Score: 9 01/26/20 24 2:09 PM EST documented as of this encounter Care Teams Caretaker Relationship Specialty Start Date End Date Nimo Lopez MD [address] [place] [address] PCP - General Family Medicine 05/20/11 documented as of this encounter
--- OUTSIDE RECORDS SUMMARY | 2024-04-17 15:07 | XMS_ITS | Encounter Summary ---
Author Organization [employer] Address [address] [facility] 7t [place] [address] Care Team Providers Care Acquisition Marketing Manager Name Role Phone Nimo Lopez MD Primary Care Provider [phone] Reason for Visit * Reason Onset Date Comments CHART PREP 04/13/2024 Encounter Details Date Type Department Care Team ([facility] st Contact Info) Description 04/13/2024 Telephone [facility] MED & PEDS [address] [place] [address] Nimo Lopez MD [address] [place] [address] CHART PREP Social History Tobacco Use Types Packs/Day Years [...] encounter Miscellaneous Notes * Telephone Encounter - Gema Be [place] - 04/13/2024 9:43 AM EST Chart Prep Labs: done Images: not applicable Vaccines due: yes Referrals: complete Screenings: Overdue care gaps: PHQ-9 documented in this encounter Plan of Treatment Upcoming Encounters Date Type Department Care Team ([facility] st Contact Info) Description 05/15/2024 11:15 AM EDT Office Visit [facility] [address] [place] [address] Omar Mchugh MD [address] [place] [address] documented as of this encounter Visit Diagnoses Not on filedocumented in this encounter Additional Health Concerns Assessment Noted Time PHQ-9 Depression Total Score: 9 01/26/20 24 2:09 PM EST documented as of this encounter Care Teams Acquisition Marketing Manager Relationship Specialty Start Date End Date Nimo Lopez MD [address] [place] [address] PCP - General Family Medicine 05/20/11 documented as of this encounter
--- OUTSIDE RECORDS SUMMARY | 2024-04-17 15:07 | XMS_ITS | Encounter Summary ---
Author Organization [employer] Address [address] [place] [address] 7 [place] [address] Care Team Providers Care Instructor Tap Dancing Name Role Phone Nimo Lopez MD Primary Care Provider [phone] Encounter Details Date Type Department Care Team (Late st Contact Info) Description 07/02/2022 Orders Only [facility] MED & PED[facility] [address] [place], [place] [phone] Miriam Diamond LPN Social History Tobacco Use Types Packs/Day Years [...] Description 05/15/2024 11:15 AM EDT Office Visit [facility] P[facility] [address] [place] [address] Omar Mchugh MD [address] [place] [address] documented as of this encounter Procedures Procedure Name Priority Date/Time Associated Diagnosis Comments INFLUENZA A B2 ID NOW (HENDRICKS) Routine 03/15/2023 2:19 PM EST STREP A NUCLEIC ACID Routine 03/15/2023 2:19 PM EST COVID-19 ID NOW (HENDRICKS) Routine 03/15/2023 2:19 PM EST documented in this encounter Results * Influenza A B2 ID NOW (Hendricks) (03/15/2023 2:19 PM EST) IDNOW SERIAL# [id number] [facility] Influenza A Negative Negative [facility] Influenza B2 Negative Negative [facility] Influenza A B2 Note See Note [facility] Comment:The Hendricks ID NOW In fluenza A B2 test is used for thequalitative detection of influenza A and B from patientswith signs and symptoms of respiratory infection.Negative results do not preclude influenza virus infectionand should not be used as the sole basis for diagnosis,treatment or other patient management decisions.There is a risk of false negative results due to thepresence of variants in the viral targets of the assay, lowlevels of virus in the specimen and co- infection withRespiratory Syncytial Virus. 03/15/2023 2:19 PM EST 03/15/2023 3:08 PM EST us Generic External Data Provider LAB MICROBIOLOGY - GENERAL ORDERABLES Final Result Performing Organization Address City/State/[facility] Co de Phone Number [facility] [address] [place] [phone] * COVID-19 ID NOW (HENDRICKS) (03/15/2023 2:19 PM EST) IDNOW SERIAL# [id number] [facility] COVID-19 TEST Negative Negative [facility] COVID-19 NOTE See Note [facility] Comment: Results are for the identification of SARS-CoV2 RNA. TheSARS-CoV2 RNA is generally detectable in respiratory samplesduring the acute phase of infection. Positive results areindicative of the presence of SARS-CoV-2 RNA; clinicalcorrelation with patient history and other diagnosticinformation is necessary to determine patient infectionstatus. Positive results do not rule out bacterial infectionor co- infection with other viruses.Testing facilities within the [facility] are required to report all positive results tothe appropriate public health authorities.Negative results should be treated as presumptive and, ifinconsistent with clinical signs and symptoms or necessaryfor patient management, should be tested with differentauthorized or cleared molecular tests. Negative results donot preclude SARS-CoV2 RNA infection and should not be usedas the sole basis for patient management decisions. Negativeresults should be considered in the context of a patient'srecent exposures, history and the presence of clinical signsand symptoms consistent with COVID-19.This test has been authorized by the FDA under an EmergencyUse Authorization (EUA) for use by authorized laboratories.Testing performed on the [employer] ID NOW utilizing NAAT. 03/15/2023 2:19 PM EST 03/15/2023 2:46 PM EST Generic External Data Provider LAB MOLECULAR EMELY GNOSTICS ORDERABLES Final Result Performing Organization Address [facility] de Phone Number [facility] [address] [place] [phone] * (ABNORMAL) Strep A Nucleic Acid (03/15/2023 2:19 PM EST) IDNOW SERIAL# [id number] [facility] Strep A Nucleic Acid Positive(A ) Negative [facility] Comment:All test results mus t be correlated with clinical findings.This test has not been evaluated for monitoring treatment ofinfection.Additional follow-up testing using the culture method isrequired if the result is negative and clinical symptomspersist, or in the event of an acute rheumatic feveroutbreak. 03/15/2023 2:19 PM EST 03/15/2023 2:38 PM EST us Generic External Data Provider LAB MICROBIOLOGY - GENERAL ORDERABLES Final Result Performing Organization Address [facility] Co de Phone Number [facility] [address] [place] [phone] documented in this encounter Visit Diagnoses Not on filedocumented in this encounter Care Teams Instructor Tap Dancing Relationship Specialty Start Date End Date Nimo Lopez MD [address] [place] [phone] PCP - General Family Medicine 05/20/11 documented as of this encounter
[2024-04-18 11:30] LABS: Bacterial Vaginosis PCR NEGATIVE (Negative); Candida Group PCR DETECTED (Not Detect); Candida glab krusei PCR NOT DETECTED (Not Detect); Trichomonas vaginalis PCR NOT DETECTED (Not Detect)
[2024-04-18 12:00] LABS: CT PCR NOT DETECTED (Not Detect.); NG PCR NOT DETECTED (Not Detect.)
== END 2024-04-17 11:59 | disposition home or self-care (01) ==
LOC: HO.CHCLNP 11:58
PROVIDERS: Visit Provider Pediatrics
DX: Z01.419 Encounter for gynecological examination (general) (routine) without abnormal findings (principal); N89.8 Other specified noninflammatory disorders of vagina
CPT/HCPCS: 81515; 87491; 87591

== ENCOUNTER 2024-04-17 14:06 | Outpatient (REF) | payer MEDICAID, SELFPAY ==
--- OUTSIDE RECORDS SUMMARY | 2024-04-17 17:48 | XMS_ITS | Encounter Summary ---
Author Organization [employer] Address [address] [facility] [address]t [place] [address] Care Team Providers Care Manual Control Auger Press Operator Name Role Phone Nimo Lopez MD Primary Care Provider [phone] Reason for Visit * Reason Onset Date Comments Nurse Triage 03/19/2024 Encounter Details Date Type Department Care Team (Late st Contact Info) Description 03/19/2024 Telephone [facility] MEDICINE [address] [place] [address] Nimo Lopez MD [address] [place] [address] Nurse Triage Social History Tobacco Use Types [...] irritated. Pt is offered to come to [facility] today to be seen by provider but, [...] Description 05/15/2024 11:15 AM EDT Office Visit [facility] MED & PEDS [address] [place] [address] Omar Mchugh MD [address] [place] [address] documented as of this encounter Visit Diagnoses Not on filedocumented in this encounter Additional Health Concerns Assessment Noted Time PHQ-9 Depression Total Score: 9 01/26/20 24 2:09 PM EST documented as of this encounter Care Teams Manual Control Auger Press Operator Relationship Specialty Start Date End Date Nimo Lopez MD [address] [place] [address] PCP - General Family Medicine 05/20/11 documented as of this encounter
--- OUTSIDE RECORDS SUMMARY | 2024-04-17 17:48 | XMS_ITS | Encounter Summary ---
Author Organization [employer] Address [address] [facility] [address]t [place] [address] Care Team Providers Care Die Technician Name Role Phone Nimo Lopez MD Primary Care Provider Encounter Details Date Type Department Care Team ([facility] st Contact Info) Description 2024 11:15 AM EST Office Visit [facility] MED & PEDS [address] [place], [place] [phone] Nimo Lopez MD [address] [place] [address] Seasonal allergies (Primary Dx); Vulvar rash Social [...] Description 05/15/2024 11:15 AM EDT Office Visit [facility] MED & PEDS [address] [place] [address] Omar Mchugh MD [address] [place] [address] documented as of this encounter Visit Diagnoses Diagnosis Seasonal allergies- Primary Allergic rhinitis, cause unspecified Vulvar rash documented in this encounter Additional Health Concerns Assessment Noted Time PHQ-9 Depression Total Score: 9 01/26/20 24 2:09 PM EST documented as of this encounter Care Teams Die Technician Relationship Specialty Start Date End Date Nimo Lopez MD [address] [place] [address] PCP - General Family Medicine 05/20/11 documented as of this encounter
--- OUTSIDE RECORDS SUMMARY | 2024-04-17 17:48 | XMS_ITS | Encounter Summary ---
Author Organization [employer] Address [address] [facility] [address] [place] [address] Care Team Providers Care Watch And Clock Repairer Name Role Phone Nimo Lopez MD Primary Care Provider [phone] Encounter Details Date Type Department Care Team [...] Upcoming Encounters Date Type Department Care Team ([facility] st Contact Info) Description 05/15/2024 11:15 AM EDT Office Visit [facility] CH[facility] MED & PEDS [address] [place] [address] Omar Mchugh MD [address] [place] [address] documented as of this encounter Visit Diagnoses Not on filedocumented in this encounter Additional Health Concerns Assessment Noted Time PHQ-9 Depression Total Score: 9 01/26/20 24 2:09 PM EST documented as of this encounter Care Teams Watch And Clock Repairer Relationship Specialty Start Date End Date Nimo Lopez MD [address] [place] [address] PCP - General Family Medicine 05/20/11 documented as of this encounter
--- OUTSIDE RECORDS SUMMARY | 2024-04-17 17:48 | XMS_ITS | Clinical Summary ---
Author Organization [employer] Address [address] [facility] 7t [place] [address] Care Team Providers Care Recreation Leader Name Role Phone Nimo Lopez MD Primary Care Provider [phone] Allergies No known active allergies Medications * [...] Description 04/17/2024 9:00 AM EST Procedure Visit [facility] [address] [place] [address] Nimo Lopez MD Encounter for gynecological examination with Papanicolaou smear of cervix (Primary Dx); Vulvar rash 04/17/2024 Travel 04/13/2024 Telephone [facility] [address] [place] [address] Nimo Lopez MD CHART PREP 2024 11:15 AM EST Office Visit [facility] [address] [place] [address] Nimo Lopez MD Seasonal allergies (Primary Dx); Vulvar rash 2024 Travel 03/19/2024 Telephone [facility] [address] [place] [address] Nimo Lopez MD Nurse Triage 02/10/2024 8:00 AM EST Office Visit [facility] [address] [place] [address] Michelle Shipley 02/09/2024 10:00 AM EST Office Visit [facility] [address] [place] [address] Nina Mike Dental calculus (Primary Dx) 01/26/2024 2:15 PM EST Office Visit [facility] [address] [place] [address] Nimo Lopez MD Encounter for immunization (Primary Dx); Routine general medical examination at a health care facility; Seasonal allergies; Other eczema; control counseling; Anxiety associated with depression 01/26/2024 Travel 01/24/2024 Telephone [facility] [address] [place] [address] Nimo Lopez MD Chart Prep 01/24/2024 Telephone [facility] [address] [place] [address] Nimo Lopez MD from Last 3 Months [...] Description 05/15/2024 11:15 AM EDT Office Visit [facility] [address] [facility] [place] [address] Omar Mchugh MD [address] [place] [address] Health Maintenance Due Date Last Done Comments [...] SURF, POSTERIOR Routine 02/10/2024 8:00 AM EST PERIODIC ORAL EVALUATION - ESTABLISHED PATIENT Routine 02/09/2024 10:00 AM EST [...] RNA, TMA, Urogenital NOT DETECTED NOT DETECTED [facility] [place] [facility] Neisseria gonorrhoeae RNA, TMA, Urogenital NOT DETECTED NOT DETECTED [facility] [place] [facility] (Always Message) [facility] [place] [facility] [facility] Comment: The analytical performance characteristics of this assay, when used to test SurePath(TM) specimens have been determined by [facility]. The modifications have not been cleared or approved by the FDA. This assay has been validated pursuant to the CLIA regulations and is used for clinical purposes. For additional information, please refer to https://education.[employer]/faq/VEO567 (This link is being provided for information/ educational purposes only.) Swab (Vaginal Swab) 07/28/2022 10:26 AM EDT 07/29/2022 4:13 AM EDT Nimo Lopez MD LAB MICROBIOLOGY - GENERAL OR DERABLES Final Result [facility] [address], [place] [address] [facility] [place] [employer] [address] [place] [address] from Last 3 Months or Most Recently Relevant to Health Maintenance Insurance [address] [address] [employer] STAND CHILD Care Teams Recreation Leader Relationship Specialty Start Date End Date Nimo Lopez MD [address] [place] [phone] PCP - General Family Medicine 05/20/11
--- OUTSIDE RECORDS SUMMARY | 2024-04-17 17:48 | XMS_ITS | Clinical Summary ---
Author Organization [facility] it Address [address] [place] [address] Care Team Providers Care Human Resources Benefits Administrator Name Role Phone Unavailable Primary Care Provider [...]
--- OUTSIDE RECORDS SUMMARY | 2024-04-17 17:48 | XMS_ITS | Encounter Summary ---
Author Organization [employer] Address [address] [facility] 7t [place] [address] Care Team Providers Care Microbiological Lab Technician Name Role Phone Nimo Lopez MD Primary Care Provider [phone] Reason for Visit * Reason Comments Routine Cleaning Dental Exam Encounter Details Date Type Department Care Team (Late st Contact Info) Description 02/09/2024 10:00 AM EST Office Visit [facility] [address] [place] [address] Nina Mike Dental calculus (Primary Dx) Social History Tobacco Use Types Packs/Day Years [...] Sign Reading Time Taken Comments Blood Pressure 122/76 02/09/2024 10:01 AM EST Pulse - - Temperature - - Respiratory Rate - - Oxygen Saturation - - Inhaled Oxygen Concentration - - Weight - - Height - - Body Mass Index - - documented in this encounter Progress Notes * Nina Mike - 02/09/2024 10:00 AM EST Patient ID: Lucas Rich is a 18 y.o. female. Time Out: Timeout Date: 02/09/24, Timeout Time: 1001 Location: [facility] Tooth: Maxilla and Mandible Procedure: Exam, X-rays, and Prophylaxis Verified the above with patient, bar assistant, and provider. Confirmed via patient's chart, intraorally and by radiographs. Manager Baby: not applicable Medical Hx: Vitals: Blood pressure 122/76, last menstrual period 01/20/2024. Medications, Med Hx reviewed with patient and updated in chart. Treatment Provided Dental procedures in this visit D1110 - PROPHYLAXIS - ADULT (Completed) Service provider: Nina Loyd provider: Michelle Shipley [id number] - CASE PRESENTATION, DETAILED AND EXTENSIVE TREATMENT PLANNING (Completed) Service provider: Nnia Loyd provider: Michelle Shipley [id number] - ORAL HYGIENE INSTRUCTIONS (Completed) Service provider: Nina Loyd provider: Michelle Shipley [id number] - INTRAORAL - COMPLETE SERIES OF RADIOGRAPHIC IMAGES (Completed) Service provider: Nina Loyd provider: Michelle Shipley Instruments Used: Ultrasonic Scalers, Hand Scalers, and Prophy angle Fluoride: N/A Oral Cancer Screening: No lesions Head/Neck Exam: No Lesions Calculus: Light and Generalized Plaque: Light and Generalized Stain: Light and Localized Bleeding: Light and Localized Gingiva: Healthy, Perio Charting Completed, and Bleeding on probing OH: Fair Perio Chart: Completed Dental exam done by Dr. Shipley. Oral hygiene instructions provided to patient including brushing technique and flossing. Recommendations: Blanchard two times daily, modified verdin technique, Floss daily, Electric toothbrush, Soft bristle toothbrush, Blanchard Tongue, Anti-sensitivity toothpaste Recall Frequency: 6 mo NV: Restorations & Consultation Hygienist: Nina Mike RDH * Michelle Shipley - 02/09/2024 10:00 AM EST Images from the original note were not included. Dental procedures in this visit D1110 - PROPHYLAXIS - ADULT (Completed) Service provider: Nina Loyd provider: Michelle Shipley [id number] - CASE PRESENTATION, DETAILED AND EXTENSIVE TREATMENT PLANNING (Completed) Service provider: Nina Loyd provider: Michelle Shipley D1330 - ORAL HYGIENE INSTRUCTIONS (Completed) Service provider: Nina Loyd provider: Michelle Shipley D0210 - INTRAORAL - COMPLETE SERIES OF RADIOGRAPHIC IMAGES (Completed) Service provider: Nina Loyd provider: Michelle Shipley D0120 - PERIODIC ORAL EVALUATION - ESTABLISHED PATIENT (Completed) Service provider: Michelle Shipley [place] provider: Michelle Shipley Patient ID: Lucas Rich is a 19 y.o. female. Time Out: Timeout Date: 02/09/24, Timeout Time: 1001 Location: [facility] Tooth: Maxilla and Mandible Procedure: Exam Verified the above with patient, bar assistant, and provider. Confirmed via patient's chart, intraorally and by radiographs. Manager Baby: not applicable Chief Complaint Patient presents with Routine Cleaning Dental Exam Medical Hx: Vitals: Blood pressure 122/76, last menstrual period 01/20/2024. History reviewed. No pertinent past medical history. Medications: Outpatient Encounter Medications as of 02/09/2024 Medication Sig Dispense Refill loratadine (Claritin) 10 MG tablet Take 1 tablet (10 mg) by mouth Once per day. 90 tablet 5 [DISCONTINUED] norelgestromin-ethinyl estradiol (Ortho-Evra) 150-35 MCG/24HR Apply 1 patch each week for 3 weeks, then remove for 1 week. 9 patch 12 [DISCONTINUED] triamcinolone (Kenalog) 0.1 % cream Apply topically 2 times daily. 45 g 11 [DISCONTINUED] loratadine (Claritin) 10 MG tablet TAKE 1 TABLET BY MOUTH EVERY DAY (Patient not taking: Reported on 02/09/2024) 90 tablet 1 No facility-administered encounter medications on file as of 02/09/2024. 18 y/o female presents for an exam seen by Dr. Michelle Shipley, ZAHEER. Chief Complaint: I came for cleaning and have pain in all of my wisdom teeth area as they are erupting Medical History: Patient does not report any changes in health issues that could alter the Treatment Plan. Medical consult / medical clearance needed: None EASTERN SHOSHONE: Pain: pain in wisdom teeth Allergies: Reviewed in EHR Medications: Reviewed in EHR Cancer screening: Extra-oral: WNL Intraoral: WNL Extra-oral examination TMJ Deviation - No Clicking - No Tenderness - No Facial symmetry - WNL Lymph nodes - WNL Cheeks - WNL Intraoral examination Soft tissues - WNL Palate - WNL Tongue - WNL Buccal mucosa - WNL Floor of mouth - WNL Vestibules - WNL Glands - WNL Duct area - WNL Oropharynx - WNL Radiographs X-rays taken on: FMX -today Discussion: -Findings, risks, benefits and alternatives discussed with pt. -Reviewed radiographs with pt. -Pointed out areas of radiographic calculus and bone loss. -Discussed sequelae of bacteria on gingiva and underlying bone. Recommended regular recalls. Advised increased frequency of brushing and flossing. 4-6 week perio reevaluation to determine if further treatment indicated. -Restorations planned as charted. -Pt mentioned that he is experiencing discomfort due to erupting wisdom teeth- referred to Dr. Martin for consult. -OHI reviewed. Emphasis was laid on maintaining good oral hygiene regimen at home along with regular visits to dentist. -Pt was made aware that pt might loose teeth in future if no intervention is done. -Pt understood, was satisfied with our conversation and agreed with tx plan; dismissed in good condition. -All questions answered. TMJ/Occlusal - TMJ is within normal limits. Oral Cancer Risk - low Perio risk- mild-moderate Oral Hygiene Instruction Provided - Yes Oral Hygiene Instructions: Blanchard two times daily, modified verdin technique, Floss daily, Electric toothbrush, Soft bristle toothbrush, Blanchard Tongue. Referrals - None Treatment plan: -prophy- completed today by Nina -consult with Dr. Martin -for extraction #1, 16, 17, 32 -Restorative -6 month recall All questions answered and expressed understanding. Dismissed in good condition. NV: restorative Hygienist: Nina Mike Dentist: Dr. Michelle Shipley, DMD documented in this encounter Plan of Treatment Upcoming Encounters Date Type Department Care Team (Late st Contact Info) Description 05/15/2024 11:15 AM EDT Office Visit [facility] [address] [place] [address] Omar Mchugh MD [address] [place] [address] Scheduled Orders Name Type Priority Associated Diagnoses Orde r Schedule PROPHYLAXIS - ADULT Dental Routine 1 Occ urrences starting 02/09/2024 5 DO 5 DO RESIN-BASED COMPOSITE - 2 SURFACES, POSTERIOR Dental Routine [address] arting 02/09/2024 13 DO 13 DO RESIN-BASED COMPOSITE - 2 SURFACES, POSTERIOR Dental Routine [address] arting 02/09/2024 18 MO 18 MO RESIN-BASED COMPOSITE - 2 SURFACES, POSTERIOR Dental Routine [address] arting 02/09/2024 19 DO 19 DO RESIN-BASED COMPOSITE - 2 SURFACES, POSTERIOR Dental Routine [address] arting 02/09/2024 CONSULTATION WITH A [facility] CRUSHING MACHINE OPERATOR Dental Routine [address] arting 02/09/2024 10 MF 10 MF RESIN-BASED COMPOSITE - 2 SURFACES, ANTERIOR Dental Routine [address] arting 02/09/2024 documented as of this encounter Procedures Procedure Name Priority Date/Time Associated Diagnosis Comments PROPHYLAXIS - ADULT Routine 02/09/2024 1 0:00 AM EST PERIODIC ORAL EVALUATION - ESTABLISHED PATIENT Routine 02/09/2024 10:00 AM EST ORAL HYGIENE INSTRUCTIONS Routine 2023 10:00 AM EST INTRAORAL - COMPLETE SERIES OF RADIOGRAPHIC IMAGES Routine 02/09/2024 10:00 AM EST CASE PRESENTATION, DETAILED AND EXTENSIVE TREATMENT PLANNING Routine 02/09/2024 10:00 AM EST documented in this encounter Visit Diagnoses Diagnosis Dental calculus- Primary Accretions on teeth documented in this encounter Additional Health Concerns Assessment Noted Time PHQ-9 Depression Total Score: 9 01/26/20 24 2:09 PM EST documented as of this encounter Care Teams Microbiological Lab Technician Relationship Specialty Start Date End Date Nimo Lopez MD [address] [place] [phone] PCP - General Family Medicine 05/20/11 documented as of this encounter
--- OUTSIDE RECORDS SUMMARY | 2024-04-17 17:48 | XMS_ITS | Encounter Summary ---
Author Organization [employer] Address [address] [facility] 7t [place] [address] Care Team Providers Care Overnight Babysitter Name Role Phone Nimo Lopez MD Primary Care Provider [phone] Encounter Details Date Type Department Care Team [...] Upcoming Encounters Date Type Department Care Team ([facility] st Contact Info) Description 05/15/2024 11:15 AM EDT Office Visit [facility] [address] [place] [address] Omar Mchugh MD [address] [place] [address] documented as of this encounter Visit Diagnoses Not on filedocumented in this encounter Additional Health Concerns Assessment Noted Time PHQ-9 Depression Total Score: 9 01/26/20 24 2:09 PM EST documented as of this encounter Care Teams Overnight Babysitter Relationship Specialty Start Date End Date Nimo Lopez MD [address] [place] [address] PCP - General Family Medicine 05/20/11 documented as of this encounter
--- OUTSIDE RECORDS SUMMARY | 2024-04-17 17:48 | XMS_ITS | Encounter Summary ---
Author Organization [employer] Address [address] [facility] 7t [place] [address] Care Team Providers Care Radar Air Traffic Controller Name Role Phone Nimo Lopez MD Primary Care Provider [phone] Encounter Details Date Type Department Care Team (Latest Contact Info) Description 04/17/2024 9:00 AM EST Procedure Visit [facility] [address] [place], [place] [phone] Nimo Lopez MD [address] [place] [address] Encounter for gynecological examination with Papanicolaou smear [...] Exam Vitals reviewed. Exam conducted with a director of financial aid present. Constitutional: Appearance: Normal appearance. Cardiovascular: Rate [...] 05/15/2024 11:15 AM EDT Office Visit [facility] [address] [place] [address] Omar Mchugh MD [address] [place] [address] Scheduled Orders Name Type Priority Associated Diagnoses [...] documented as of this encounter Care Teams Radar Air Traffic Controller Relationship Specialty Start Date End Date Nimo Lopez MD [address] [place] [address] PCP - General Family Medicine 05/20/11 documented as of this encounter
--- OUTSIDE RECORDS SUMMARY | 2024-04-17 17:48 | XMS_ITS | Encounter Summary ---
Author Organization [employer] Address [address] [facility] 7t [place] [address] Care Team Providers Care Rn Wellness Name Role Phone Nimo Lopez MD Primary Care Provider [phone] Reason for Visit * Reason Onset Date Comments CHART PREP 04/13/2024 Encounter Details Date Type Department Care Team ([facility] st Contact Info) Description 04/13/2024 Telephone [facility] [address] [place] [address] Nimo Lopez MD [address] [place] [address] CHART PREP Social History Tobacco Use Types [...] Upcoming Encounters Date Type Department Care Team ([facility] st Contact Info) Description 05/15/2024 11:15 AM EDT Office Visit [facility] [address] [place] [address] Omar Mchugh MD [address] [place] [address] documented as of this encounter Visit Diagnoses Not on filedocumented in this encounter Additional Health Concerns Assessment Noted Time PHQ-9 Depression Total Score: 9 01/26/20 24 2:09 PM EST documented as of this encounter Care Teams Rn Wellness Relationship Specialty Start Date End Date Nimo Lopez MD [address] [place] [address] PCP - General Family Medicine 05/20/11 documented as of this encounter
--- OUTSIDE RECORDS SUMMARY | 2024-04-17 17:48 | XMS_ITS | Encounter Summary ---
Author Organization [employer] Address [address] [place] [address] 7 [place] [address] Care Team Providers Care Back Grinder Name Role Phone Nimo Lopez MD Primary Care Provider [phone] Encounter Details Date Type Department Care Team (Late st Contact Info) Description 07/02/2022 Orders Only [facility] [address] [place], [place] [phone] Miriam Diamond LPN Social History Tobacco Use [...] EDT Office Visit [facility] [address] [place] [address] Omar Mchugh MD [address] [place] [address] documented as of this encounter Procedures Procedure Name Priority Date/Time Associated Diagnosis Comments INFLUENZA A B2 ID NOW (HENDRICKS) Routine 03/15/2023 2:19 PM EST STREP A NUCLEIC ACID Routine 03/15/2023 2:19 PM EST COVID-19 ID NOW (HENDRICKS) Routine 03/15/2023 2:19 PM EST documented in this encounter Results * Influenza A B2 ID NOW (Hendricks) (03/15/2023 2:19 PM EST) IDNOW SERIAL# [id number] [facility] Influenza A Negative Negative [facility] Influenza B2 Negative Negative [facility] Influenza A B2 Note See Note [facility] Comment:The Hendricks ID NOW In [...] GENERAL ORDERABLES Final Result Performing Organization Address City/State/[facility] Co de Phone Number [facility] [address] [place] [phone] * COVID-19 ID NOW (HENDRICKS) (03/15/2023 2:19 PM EST) IDNOW SERIAL# [id number] [facility] COVID-19 TEST Negative Negative [facility] COVID-19 NOTE See Note [facility] Comment: Results are for the identification of SARS-CoV2 RNA. TheSARS-CoV2 RNA is generally detectable in respiratory samplesduring the acute phase of infection. Positive results areindicative of the presence of SARS-CoV-2 RNA; clinicalcorrelation with patient history and other diagnosticinformation is necessary to determine patient infectionstatus. Positive results do not rule out bacterial infectionor co- infection with other viruses.Testing facilities within the [facility] and [facility] are required to report all positive results [...] use by authorized laboratories.Testing performed on the [employer] ID NOW utilizing NAAT. 03/15/2023 2:19 PM EST 03/15/2023 2:46 PM EST Generic External Data Provider LAB MOLECULAR [facility] ORDERABLES Final Result Performing Organization Address [facility] de Phone Number [facility] [address] [place] [phone] * (ABNORMAL) Strep A Nucleic Acid (03/15/2023 2:19 PM EST) IDNOW SERIAL# [id number] [facility] Strep A Nucleic Acid Positive(A ) Negative [facility] Comment:All test results mus t [...] GENERAL ORDERABLES Final Result Performing Organization Address [facility] Co de Phone Number [facility] [address] [place] [phone] documented in this encounter Visit Diagnoses Not on filedocumented in this encounter Care Teams Back Grinder Relationship Specialty Start Date End Date Nimo Lopez MD [address] [place] [phone] PCP - General Family Medicine 05/20/11 documented as of this encounter
== END 2024-04-17 14:07 | disposition home or self-care (01) ==
LOC: HO.HHCLNP 14:06
PROVIDERS: Visit Provider Pediatrics
DX: Z01.419 Encounter for gynecological examination (general) (routine) without abnormal findings (principal)
CPT/HCPCS: 88175

== ENCOUNTER 2024-07-05 19:24 | Emergency (ER) | payer MEDICAID, SELFPAY ==
[2024-07-05 19:40] VITALS: BP 134/74; PULSE 120; RESP 18; TEMP 37.4; O2SAT 99; BMI 22.5
--- NOTE | 2024-07-05 19:44 | ECG_ITS ---
Test Reason : TACHY Blood Pressure : */* mmHG Vent. Rate : 123 BPM Atrial Rate : 123 BPM P-R Int : 136 ms QRS Dur : 88 ms QT Int : 316 ms P-R-T Axes : 67 75 25 degrees QTcB Int : 452 ms Sinus tachycardia Otherwise normal ECG No previous ECGs available Referred By: Generic ED Physician Electronically Signed By: John Berman
[2024-07-05 19:56] LABS: MANUAL DIFF FLAG NO
--- NOTE | 2024-07-05 19:57 | ED_ITS ---
HPI - General Adult General Chief complaint: General Medical Stated complaint: sore throat, ear ache, body ache Time Seen by Provider: 07/05/24 19:56 Source: patient Mode of arrival: ambulatory Limitations: no limitations History of Present Illness ED Provider: Dr. Kee Grossman HPI narrative: ED 19-year-old female with no significant past medical history who presents emergency department for evaluation of sore throat, right ear pain, body aches, nonproductive cough, subjective fever and chills with symptoms starting on the morning of evaluation. The patient did take loratadine with only minimal improvement of her symptoms. The patient states that her body pain and right ear pain is severe and is 9/10. Patient states she has difficulty swallowing pills and would prefer a liquid medications if possible. Related Data Previous Rx's ?Medication ?Instructions ?Recorded amoxicillin 875 mg-potassium 1 tab PO Q12H #14 tabs 03/15/23 clavulanate 125 mg tablet amoxicillin 250 mg/5 mL oral 1,000 mg (20 mL) PO Q12H 7 days 07/05/24 suspension #280 mL ibuprofen 100 mg/5 mL oral 400 mg (20 mL) PO Q6H PRN fever or 07/05/24 suspension pain #473 mL Allergies Allergy/AdvReac Type Severity Reaction Status Date / Time No Known Allergies Allergy Verified 07/05/24 19:41 Review of Systems 2 Review of Systems: Yes all other systems are reviewed and are negative [facility] Past Medical History [facility] Narrative: Social history: She denies tobacco, alcohol and drug use Social History Social History Smoked in Last 30 Days: No Use of substances other than those prescribed or required for medical reasons: No Substance Use Type: Marijuana Advance Directives: No Advance Directives Information Provided: No Do you have a plan to hurt others: No Plan Patient : No Physical Exam ED Vital Signs: Vital Signs - 24 hr 07/05/24 19:40 07/05/24 20:21 07/05/24 21:17 Temperature 99.3 F 98.3 F Pulse Rate 120 H 125 H 129 H Respiratory Rate 18 18 16 Blood Pressure 134/74 103/55 L 114/53 L Pulse Oximetry 99 100 98 Oxygen Delivery Method Room Air Room Air Room Air 07/05/24 21:42 Temperature 98.3 F Pulse Rate 129 H Respiratory Rate 16 Blood Pressure 114/53 L Pulse Oximetry 98 Oxygen Delivery Method Room Air BMI result Body Mass Index 22.5 vital signs revealed an elevated heart rate otherwise unremarkable Exam: General: Awake, alert in no distress Head: Normocephalic, atraumatic EENT: PERRL, Lids normal, sclera normal, conjunctiva normal, nose normal , ears: Left tympanic membrane was normal, right tympanic membrane was erythematous with no loss of landmarks, external auditory canals were normal, throat mild posterior erythema with some slight asymmetric swelling of the tonsils right great being, no exudates noted Neck: Supple, small, bilateral anterior cervical adenopathy Lung: breath sounds symmetric, no wheezing, rales or rhonchi Chest: symmetric movement, nontender Heart: regular rate and rhythm, normal S1, S2 no murmurs or rubs Abdomen: soft, non-tender, nondistended, normal bowel sounds Psych: Pleasant, cooperative Medications Administered Discontinued Medications Generic Name Dose Route Start Last Admin Trade Name Freq PRN Reason Stop Dose Admin Ibuprofen 400 mg 07/05/24 20:10 07/05/24 20:19 Ibuprofen 400 Mg Tablet PO 07/05/24 20:11 400 mg ONCE STA Administration Medical Decision Making Medical Decision Making [facility] Narrative: ED 19-year-old female with no significant past medical history who presents emergency department for evaluation of sore throat, right ear pain, body aches, nonproductive cough, subjective fever and chills with symptoms starting on the morning of evaluation. The patient states that her body pain and right ear pain is severe and is 9/10. vital signs revealed elevated heart rate. Physical examination revealed erythema to the right tympanic membrane, posterior erythema with slight right-sided tonsillar swelling compared to the left and tender cervical adenopathy. Differential diagnosis: Includes but is not limited to viral syndrome, COVID- 19, influenza, RSV, pneumonia, bronchitis, viral pharyngitis, bacterial pharyngitis, tonsillitis, peritonsillar abscess, anemia, electrolyte abnormalities Course: My the independent interpretation patient's laboratory evaluation is as follows: WBC elevated 36,300. COVID-19, influenza and RSV tests were negative. Patient's presentation physical exam is concerning for possible bacterial pharyngitis versus tonsillitis with early abscess. patient was given Tylenol formed mg orally here in the emergency department for pain. She was given prescriptions for amoxicillin 250 mg per 5 cc, 1000 mg q.12 hours x7 days. She was also given prescription for Children's ibuprofen 100 mg per 5 cc, 400 mg q.6 hours as needed for pain or fever. She was given printed and verbal instructions and discharged home. Given her symptoms I do not think that she revealed to work for several days and she was given return to work note. Admission/Observation Consideration of admission/observation: Escalation of care including admission/observation considered ( Yes) Lab Data MDM Lab Attestation statement: I reviewed the patient's lab results. 07/05/24 19:51 07/05/24 19:51 Labs: Lab Results 07/05/24 Range/Units 19:51 WBC 18.4 H (4.8-10.8) X10*3/uL RBC 4.34 (4.20-5.50) X10*6/uL Hgb 12.3 (12.0-16.0) g/dl Hct 36.3 L (37.0-47.0) % MCV 83.6 (80.0-98.0) fL MCH 28.3 (27.0-33.0) pg MCHC 33.9 (31.0-35.0) g/dl RDW 13.2 (11.0-16.0) % Plt Count 240 (160-400) X10*3/uL MPV 9.6 (9.4-12.3) fL Immature Gran % (Auto) 0.3 (0.0-0.4) % Neut % (Auto) 87.4 H (45-73) % Lymph % (Auto) 6.9 L (20-40) % [place] % (Auto) 5.0 (2-11) % Eos % (Auto) 0.1 (0-4) % Baso % (Auto) 0.3 (0-2) % Lymph # (Auto) 1.3 (1.2-4.9) X10*3/uL [place] # (Auto) 0.9 (0.1-1.2) X10*3/uL Eos # (Auto) 0.0 (0.0-0.4) X10*3/uL Baso # (Auto) 0.1 (0.0-0.2) X10*3/uL Abs Immat Gran (auto) 0.06 H (0.00-0.03) X10*3/uL Absolute Neuts (auto) 16.1 H (2.0-8.3) x10*3/uL Absolute Nucleated RBC 0.000 (0.0-0.012) X10*3/uL Nucleated RBC % (auto) 0.0 (0.0-0.2) /100WBC Sodium 139 (135-145) mmol/L Potassium 3.4 (3.3-5.1) mmol/L Chloride 107 (96-108) mmol/L Carbon Dioxide 22 (22-29) mmol/L Anion Gap 13 (12-20) BUN 8 L (9-16) mg/dL Creatinine 0.58 (0.5-1.4) mg/dL Estim Creat Clear Calc 110.2 Estimated GFR > 60 Random Glucose 101 (60-115) mg/dL Calcium 9.3 (8.4-10.2) mg/dL Total Bilirubin 0.9 (0.0-1.0) mg/dL AST 25 (5-31) U/L ALT 17 (0-31) U/L Alkaline Phosphatase 54 (39-117) U/L Total Protein 7.7 (6.5-8.0) g/dL Albumin 4.5 (3.5-5.0) g/dL Influenza Type A (PCR) NEGATIVE (Negative) Influenza Type B (PCR) NEGATIVE (Negative) RSV RNA Qual (PCR) NEGATIVE (Negative) SARS-CoV-2 RNA (RT-PCR) NEGATIVE (Negative) Prescription Management I considered prescription management with: Pain Medication ( liquid ibuprofen) and Antibiotic liquid amoxicillin Discharge Plan Discharge Clinical Impression: Acute tonsillitis, Acute pain of right ear Patient Disposition: Home, Self-Care Additional Instructions: Your blood work was unremarkable except for an elevated white blood cell count which goes along with a an infection. Your COVID 19, influenza and RSV tests were negative. At this time I am concerned that you may have an infected tonsil that is giving your throat pain and your right ear pain. Take ibuprofen 200 mg pills, 2 pills every 6 hours as needed for pain or fever. Take Tylenol (acetaminophen) 500 mg pills, 2 pills every 6 hours as needed for pain or fever. Take amoxicillin 250 mg per 5 mL, 20 mL every 12 hours for 7 days. Take ibuprofen 100 mg per 5 mL, 20 mL every 6 hours as needed for pain Follow-up with your doctor in 2 days. Please return to the emergency department if your symptoms get worse or if you develop any symptoms that are concerning to you. Please see the work note Prescriptions: New amoxicillin 250 mg/5 mL suspension for reconstitution 1,000 mg PO Q12H 7 Days Qty: 280 0RF ibuprofen 100 mg/5 mL suspension 400 mg PO Q6H PRN (Reason: fever or pain) Qty: 473 0RF No Action amoxicillin-pot clavulanate 875-125 mg tablet 1 tab PO Q12H Qty: 14 0RF Stand Alone Forms: Work/School Release Interventions: ED Discharge Assessment Last Done: 07/05/24 21:42 Discharge Date/Time: 07/05/24 21:43 Print Language: Burkinan
[2024-07-05 20:00] LABS: Basophils Absolute Auto 0.1 X10*3/uL (0.0-0.2); Basophils Percent Auto 0.3 % (0-2); Eosinophils Percent Auto 0.1 % (0-4); Hematocrit 36.3 % (37.0-47.0); Hemoglobin 12.3 g/dl (12.0-16.0); Imm Gran Abs Auto 0.06 X10*3/uL (0.00-0.03); Imm Gran Pct Auto 0.3 % (0.0-0.4); Lymphocytes Absolute Auto 1.3 X10*3/uL (1.2-4.9); Lymphocytes Percent Auto 6.9 % (20-40); Mean Corpuscular HGB Conc 33.9 g/dl (31.0-35.0); Mean Corpuscular Hemoglobin 28.3 pg (27.0-33.0); Mean Corpuscular Volume 83.6 fL (80.0-98.0); Mean Platelet Volume 9.6 fL (9.4-12.3); Monocytes Absolute Auto 0.9 X10*3/uL (0.1-1.2); Neutrophils Absolute Auto 16.1 x10*3/uL (2.0-8.3); Neutrophils Percent Auto 87.4 % (45-73); Platelet Count 240 X10*3/uL (160-400); Red Blood Count 4.34 X10*6/uL (4.20-5.50); Red Cell Distribution Width 13.2 % (11.0-16.0); White Blood Count 18.4 X10*3/uL (4.8-10.8)
[2024-07-05 20:15] LABS: Alanine Aminotransferase 17 U/L (0-31); Albumin Level 4.5 g/dL (3.5-5.0); Alkaline Phosphatase 54 U/L (39-117); Anion Gap 13 (12-20); Aspartate Amino Transferase 25 U/L (5-31); Bilirubin Total 0.9 mg/dL (0.0-1.0); Blood Urea Nitrogen 8 mg/dL (9-16); Calcium 9.3 mg/dL (8.4-10.2); Carbon Dioxide 22 mmol/L (22-29); Chloride 107 mmol/L (96-108); Creatinine Clr Calc Pharmacy 110.2; Estimated Glomerular Filt Rate > 60; Glucose Random 101 mg/dL (60-115); Potassium 3.4 mmol/L (3.3-5.1); Sodium 139 mmol/L (135-145); Total Protein 7.7 g/dL (6.5-8.0)
[2024-07-05] MEDS: Ibuprofen 400 MG TABLET PO (20:19)
[2024-07-05 20:21] VITALS: BP 103/55; PULSE 125; RESP 18; O2SAT 100
[2024-07-05 20:36] LABS: Influenza A PCR NEGATIVE (Negative); Influenza B PCR NEGATIVE (Negative); Resp Syncy Virus RNA Qual PCR NEGATIVE (Negative); SARS COV2 PCR INHOUSE NEGATIVE (Negative)
[2024-07-05 21:17] VITALS: BP 114/53; PULSE 129; RESP 16; TEMP 36.8; O2SAT 98
[2024-07-05 21:42] VITALS: BP 114/53; PULSE 129; RESP 16; TEMP 36.8; O2SAT 98
== END 2024-07-05 21:43 | disposition home or self-care (01) ==
PROVIDERS: Emergency Provider Emergency Medicine Emergency Medical Services
DX: J03.90 Acute tonsillitis, unspecified (principal); H92.01 Otalgia, right ear; R05.9 Cough, unspecified; R50.9 Fever, unspecified; F12.90 Cannabis use, unspecified, uncomplicated; Z03.818 Encounter for observation for suspected exposure to other biological agents ruled out
CPT/HCPCS: 0241U; 80053; 85025; 93005; 99283; 99285

== ENCOUNTER → 2024-07-05 19:44 | Outpatient (BNV) | payer MEDICAID, SELFPAY | PROVIDERS: Emergency Provider Emergency Medicine Emergency Medical Services; Visit Provider Internal Medicine Cardiovascular Disease | DX: R00.0 Tachycardia, unspecified (principal) | CPT/HCPCS: 93010 ==

== ENCOUNTER 2024-07-06 23:32 | Emergency (ER) | payer MEDICAID, SELFPAY ==
[2024-07-06 23:36] VITALS: BP 122/71; PULSE 100; RESP 20; TEMP 36.8; O2SAT 99; BMI 21.6
[2024-07-07 00:56] LABS: MANUAL DIFF FLAG NO
[2024-07-07 00:57] LABS: Basophils Absolute Auto 0.1 X10*3/uL (0.0-0.2); Basophils Percent Auto 0.4 % (0-2); Eosinophils Percent Auto 0.1 % (0-4); Hematocrit 38.8 % (37.0-47.0); Imm Gran Abs Auto 0.08 X10*3/uL (0.00-0.03); Imm Gran Pct Auto 0.5 % (0.0-0.4); Lymphocytes Absolute Auto 1.1 X10*3/uL (1.2-4.9); Lymphocytes Percent Auto 6.7 % (20-40); Mean Corpuscular HGB Conc 33.5 g/dl (31.0-35.0); Mean Corpuscular Hemoglobin 28.2 pg (27.0-33.0); Mean Corpuscular Volume 84.2 fL (80.0-98.0); Monocytes Percent Auto 6.3 % (2-11); Platelet Count 265 X10*3/uL (160-400); Red Blood Count 4.61 X10*6/uL (4.20-5.50); Red Cell Distribution Width 13.5 % (11.0-16.0); White Blood Count 16.3 X10*3/uL (4.8-10.8)
[2024-07-07 01:14] VITALS: BP 115/56; PULSE 90; RESP 14; TEMP 36.6; O2SAT 98
[2024-07-07 01:18] LABS: Alanine Aminotransferase 16 U/L (0-31); Albumin Level 4.9 g/dL (3.5-5.0); Anion Gap 17 (12-20); Aspartate Amino Transferase 28 U/L (5-31); Bilirubin Total 0.8 mg/dL (0.0-1.0); Blood Urea Nitrogen 10 mg/dL (9-16); Calcium 9.8 mg/dL (8.4-10.2); Carbon Dioxide 20 mmol/L (22-29); Chloride 107 mmol/L (96-108); Creatinine Clr Calc Pharmacy 112.1; Estimated Glomerular Filt Rate > 60; Glucose Random 131 mg/dL (60-115); Lipase 9 U/L (8-78); Potassium 3.6 mmol/L (3.3-5.1); Sodium 140 mmol/L (135-145); Total Protein 8.5 g/dL (6.5-8.0)
--- NOTE | 2024-07-07 01:30 | PC.NURSE ---
Pt is a&ox4, no signs of distress. Pt reports 07/24 abd pain, n/v onset of 4am on 07/06 Pt reports she was just here yesterday for ear and throat discomfort Plan of care ongoing.
[2024-07-07 02:21] LABS: Alkaline Phosphatase 67 U/L (39-117)
[2024-07-07] MEDS: ondansetron HCL 4 MG/2 ML VIAL IVPUSH ×2 (03:51→08:20)
--- NOTE | 2024-07-07 03:53 | PC.NURSE ---
Pt medicated per [facility] Plan of care ongoing.
[2024-07-07 05:18] VITALS: BP 113/68; PULSE 99; RESP 16; TEMP 36.8; O2SAT 100
[2024-07-07 08:00] VITALS: BP 98/65; PULSE 88; RESP 13; TEMP 36.7; O2SAT 99
--- NOTE | 2024-07-07 08:06 | ED_ITS ---
[facility] - General Adult General Chief complaint: Nausea/Vomiting/Diarrhea Stated complaint: vomiting Time Seen by Provider: 07/07/24 07:57 Source: patient Mode of arrival: ambulatory Limitations: no limitations History of Present Illness ED Provider: [facility] narrative: 19-year-old woman presenting with nausea and vomiting, she states for the past few days she has had tonsillitis and has had difficulty eating, was seen in the emergency department yesterday and was prescribed antibiotics and ibuprofen and after taking 1 dose she started developing epigastric discomfort and vomiting. She denies vaginal bleeding or discharge no fevers or chills prior to that she has had right ear pain which has since resolved. Related Data Previous Rx's ?Medication ?Instructions ?Recorded amoxicillin 875 mg-potassium 1 tab PO Q12H #14 tabs 03/15/23 clavulanate 125 mg tablet amoxicillin 250 mg/5 mL oral 1,000 mg (20 mL) PO Q12H 7 days 07/05/24 suspension #280 mL ibuprofen 100 mg/5 mL oral 400 mg (20 mL) PO Q6H PRN fever or 07/05/24 suspension pain #473 mL ondansetron 4 mg disintegrating 4 mg PO Q8H PRN nausea and 07/07/24 tablet vomiting #4 tabs sucralfate 100 mg/mL oral 5 ml PO QID 7 days #140 mL 07/07/24 suspension (Carafate) Allergies Allergy/AdvReac Type Severity Reaction Status Date / Time No Known Allergies Allergy Verified 07/06/24 23:38 Review of Systems 2 Constitutional: Constitutional: Reports as per [facility] Social History Social History Smoked in Last 30 Days: No Use of substances other than those prescribed or required for medical reasons: Yes Substance Use Type: Marijuana Advance Directives: No Advance Directives Information Provided: No Do you have a plan to hurt others: No Plan Physical Exam ED Vital Signs: Vital Signs - 24 hr 07/06/24 23:36 07/07/24 01:14 07/07/24 05:18 Temperature 98.3 F 97.9 F 98.2 F Pulse Rate 100 90 99 Respiratory Rate 20 14 16 Blood Pressure 122/71 115/56 L 113/68 Pulse Oximetry 99 98 100 Oxygen Delivery Method Room Air Room Air Room Air 07/07/24 08:00 Temperature 98.1 F Pulse Rate 88 Respiratory Rate 13 Blood Pressure 98/65 Pulse Oximetry 99 Oxygen Delivery Method Room Air BMI result Body Mass Index 21.6 Const Other: * Gen: ?Overall well-appearing patient * HEENT: PERRLA, EOMI, MMM, uvula is midline, tonsillar erythema is present I did not appreciate exudates * Neck: Supple, no LAD * CV: RRR, no obvious murmurs appreciated * Resp: ?No wheezing rales rhonchi no stridor moving air well * Abd: ?Bowel sounds are present, epigastric tenderness is present, no rebound rigidity * MSK: FROM, strength 5/5 all extremities * Skin: Warm, dry, intact, * Neuro: ?Alert and oriented x3, moving upper and lower extremities symmetrically, no obvious facial asymmetry noted Medications Administered Discontinued Medications Generic Name Dose Route Start Last Admin Trade Name Freq PRN Reason Stop Dose Admin Al Hydroxide/Mg Hydroxide 30 ml 07/07/24 08:07 07/07/24 08:20 Magnesium Hydrox/Alum Hydrox 30 Ml Oral.Susp PO 07/07/24 08:08 30 ml ONCE ONE Administration Famotidine 20 mg 07/07/24 08:07 07/07/24 08:20 Famotidine/Pf 20 Mg/2 Ml Vial IVPUSH 07/07/24 08:08 20 mg ONCE ONE Administration Lidocaine HCl 15 ml 07/07/24 08:07 07/07/24 08:20 Lidocaine Hcl Viscous 2 % 15 Ml Solution PO 07/07/24 08:08 15 ml ONCE ONE Administration Ondansetron HCl 4 mg 07/07/24 03:48 07/07/24 03:51 Ondansetron Hcl 4 Mg/2 Ml Vial IVPUSH 07/07/24 03:49 4 mg ONCE ONE Administration Ondansetron HCl 4 mg 07/07/24 08:07 07/07/24 08:20 Ondansetron Hcl 4 Mg/2 Ml Vial IVPUSH 07/07/24 08:08 4 mg ONCE ONE Administration Medical Decision Making Medical Decision Making [facility] Narrative: Antibiotics, no exudates on my exam, uvula is midline, abdominal exam so far epigastric tenderness is benign, blood work without any evidence for dehydration, we will medicate, orthotics, anticipating discharge, we will also check still my differential as below 09:32 patient is feeling better my strep throat is negative we will be discharged Differential Diagnosis Differential Diagnoses: The differential diagnosis associated with the presentation includes Tonsillitis, gastritis, , acute otitis media, cholecystitis, pancreatitis, dehydration Lab Data 07/07/24 00:15 07/07/24 00:15 Labs: Lab Results 07/07/24 07/07/24 Range/Units 00:15 08:45 WBC 16.3 H (4.8-10.8) X10*3/uL RBC 4.61 (4.20-5.50) X10*6/uL Hgb 13.0 (12.0-16.0) g/dl Hct 38.8 (37.0-47.0) % MCV 84.2 (80.0-98.0) fL MCH 28.2 (27.0-33.0) pg MCHC 33.5 (31.0-35.0) g/dl RDW 13.5 (11.0-16.0) % Plt Count 265 (160-400) X10*3/uL MPV 10.0 (9.4-12.3) fL Immature Gran % (Auto) 0.5 H (0.0-0.4) % Neut % (Auto) 86.0 H (45-73) % Lymph % (Auto) 6.7 L (20-40) % [place] % (Auto) 6.3 (2-11) % Eos % (Auto) 0.1 (0-4) % Baso % (Auto) 0.4 (0-2) % Lymph # (Auto) 1.1 L (1.2-4.9) X10*3/uL [place] # (Auto) 1.0 (0.1-1.2) X10*3/uL Eos # (Auto) 0.0 (0.0-0.4) X10*3/uL Baso # (Auto) 0.1 (0.0-0.2) X10*3/uL Abs Immat Gran (auto) 0.08 H (0.00-0.03) X10*3/uL Absolute Neuts (auto) 14.0 H (2.0-8.3) x10*3/uL Absolute Nucleated RBC 0.000 (0.0-0.012) X10*3/uL Nucleated RBC % (auto) 0.0 (0.0-0.2) /100WBC Sodium 140 (135-145) mmol/L Potassium 3.6 (3.3-5.1) mmol/L Chloride 107 (96-108) mmol/L Carbon Dioxide 20 L (22-29) mmol/L Anion Gap 17 (12-20) BUN 10 (9-16) mg/dL Creatinine 0.57 (0.5-1.4) mg/dL Estim Creat Clear Calc 112.1 Estimated GFR > 60 Random Glucose 131 H (60-115) mg/dL Calcium 9.8 (8.4-10.2) mg/dL Total Bilirubin 0.8 (0.0-1.0) mg/dL AST 28 (5-31) U/L ALT 16 (0-31) U/L Alkaline Phosphatase 67 (39-117) U/L Total Protein 8.5 H (6.5-8.0) g/dL Albumin 4.9 (3.5-5.0) g/dL Lipase 9 (8-78) U/L S. pyogenes GrpA GEORGE Negative (Negative) Discharge Plan Discharge Clinical Impression: Abdominal pain, epigastric Nausea & vomiting Qualifiers: Vomiting type: unspecified Qualified Code(s): R11.2 - Nausea with vomiting, unspecified Patient Disposition: Home, Self-Care Additional Instructions: You do have inflammation of the tonsils however your strep throat came back negative so you do not need antibiotics which is the most likely reason you were having epigastric abdominal pain and nausea with vomiting, so take Carafate 20 minutes before any meal, avoid spicy, fatty foods, stay well hydrated, blood work did not reveal any evidence for dehydration, use Zofran as needed for nausea and vomiting, you can take Tylenol as needed for pain you can take ibuprofen you were prescribed before for pain just make sure you take food as it and also irritate your stomach if taken on an empty stomach. Odalys other issues concerns come back to the ER otherwise follow up with the PCP Prescriptions: New sucralfate [Carafate] 100 mg/mL suspension 5 ml PO QID 7 Days Qty: 140 0RF Rx Instructions: swish in mouth and swallow; use after food/drink ondansetron 4 mg tablet,disintegrating 4 mg PO Q8H PRN (Reason: nausea and vomiting) Qty: 4 0RF No Action amoxicillin-pot clavulanate 875-125 mg tablet 1 tab PO Q12H Qty: 14 0RF amoxicillin 250 mg/5 mL suspension for reconstitution 1,000 mg PO Q12H 7 Days Qty: 280 0RF ibuprofen 100 mg/5 mL suspension 400 mg PO Q6H PRN (Reason: fever or pain) Qty: 473 0RF Referrals: Keyona Rodríguez [Emergency Nurse] - Print Language: Georgian
[2024-07-07] MEDS: Famotidine/PF 20 MG/2 ML VIAL IVPUSH (08:20)
[2024-07-07] MEDS: Lidocaine HCl Viscous 2 % 15 ML SOLUTION PO (08:20)
[2024-07-07] MEDS: Magnesium Hydrox/Alum Hydrox 30 ML ORAL.SUSP PO (08:20)
[2024-07-07 09:10] LABS: IDNOW Serial# 6674DD1D; Strep A Nucleic Acid Negative (Negative)
--- NOTE | 2024-07-07 09:33 | MHC.EDTECH ---
Patient given urine cup at 0815. Patient unable to urinate. Patient was given the call funk and patient states she will ring the call funk when she does go to the bathroom. Patient still unable to urinate at 0930.
[2024-07-07 10:23] VITALS: BP 106/85; PULSE 80; RESP 18; TEMP 36.7; O2SAT 99
[2024-07-07 10:38] LABS: HCG Quantitative < 2 mIU/mL
== END 2024-07-07 10:24 | disposition home or self-care (01) ==
PROVIDERS: Emergency Provider Emergency Medicine; PCP Pediatrics
DX: R10.13 Epigastric pain (principal); R11.2 Nausea with vomiting, unspecified; R10.2 Pelvic and perineal pain; Z79.899 Other long term (current) drug therapy
CPT/HCPCS: 36415; 80053; 83690; 84702; 85025; 87651; 96374; 96375; 96376; 99284; J1308; J2405

== ENCOUNTER 2024-11-17 17:06 | Emergency (ER) | payer MEDICAID, SELFPAY ==
[2024-11-17 17:20] VITALS: BP 118/57; PULSE 117; RESP 20; TEMP 36.8; O2SAT 100; BMI 21.5
--- NOTE | 2024-11-17 17:22 | ED.GENADULT ---
HPI - General Adult General Chief complaint: Upper Respiratory Symptoms Stated complaint: throat pain/vomiting Time Seen by Provider: 11/17/24 17:24 Source: patient Mode of arrival: ambulatory Limitations: no limitations History of Present Illness HPI narrative: 19-year-old female presents complaining of a sore throat that began approximately 24 hours ago. Patient states it hurts with swallowing. She reports frequent spitting because of the discomfort. She reports subjective fevers. No nausea or vomiting. No cough. She has otherwise been feeling well. Related Data Previous Rx's ?Medication ?Instructions ?Recorded amoxicillin 875 mg-potassium 1 tab PO Q12H #14 tabs 03/15/23 clavulanate 125 mg tablet amoxicillin 250 mg/5 mL oral 1,000 mg (20 mL) PO Q12H 7 days 07/05/24 suspension #280 mL ibuprofen 100 mg/5 mL oral 400 mg (20 mL) PO Q6H PRN fever or 07/05/24 suspension pain #473 mL ondansetron 4 mg disintegrating 4 mg PO Q8H PRN nausea and 07/07/24 tablet vomiting #4 tabs sucralfate 100 mg/mL oral 5 ml PO QID 7 days #140 mL 07/07/24 suspension (Carafate) amoxicillin 250 mg/5 mL oral 500 mg (10 mL) PO TID 10 days #300 11/17/24 suspension mL ibuprofen 100 mg/5 mL oral 400 mg (20 mL) PO .q4 PRN fever or 11/17/24 suspension pain #473 mL Allergies Allergy/AdvReac Type Severity Reaction Status Date / Time No Known Allergies Allergy Verified 11/17/24 17:23 Review of Systems Review of Systems: Yes all other systems are reviewed and are negative Constitutional: Constitutional: Reports fever(s) ENT: Denies change in voice and Reports sore throat PMFSH Social History Social History Substance Use Type: Marijuana Advance Directives: No Advance Directives Information Provided: No Do you have a plan to hurt others: No Plan Physical Exam ED Vital Signs: Vital Signs - 24 hr 11/17/24 17:20 11/17/24 18:39 Temperature 98.3 F 98.3 F Pulse Rate 117 H 117 H Respiratory Rate 20 20 Blood Pressure 118/57 L 118/57 L Pulse Oximetry 100 100 Oxygen Delivery Method Room Air Room Air BMI result Body Mass Index 21.5 Const General: alert and awake HENMT Other: Auditory canals are patent. TMs are pearly white. Oropharynx is moist. There was no tongue elevation or edema. No drooling. Tonsils are +2-3 and erythematous with scattered patches of whitish exudate. There was no stridor. Neck Other: Anterior cervical lymphadenopathy Resp Other: Lung sounds clear throughout Course Course Course Narrative: Patient tolerating liquids while in the emergency department. Treatment of strep with the amoxicillin, 1st dose also given in the emergency department. Reviewed all discharge instructions. Patient expresses understanding and has no further questions at this time. Airway remains intact. Cautioned on worsening of symptoms, return immediately to the emergency department. Medications Administered Discontinued Medications Generic Name Dose Route Start Last Admin Trade Name Corey PRN Reason Stop Dose Admin Amoxicillin 500 mg 11/17/24 18:14 11/17/24 18:35 Amoxicillin Oral Susp 400 Mg/5 Ml 75 Ml Susp.Recon PO 11/17/24 18:15 500 mg ONCE STA Administration Ibuprofen 600 mg 11/17/24 17:23 11/17/24 17:27 Ibuprofen Oral Susp 200 Mg/10 Ml Oral.Susp PO 11/17/24 17:24 600 mg ONCE ONE Administration Medical Decision Making Medical Decision Making [facility] Narrative: 19-year-old female with sore throat, concern for strep or COVID. We will check swabs. Ibuprofen given. Differential Diagnosis Differential Diagnoses: The differential diagnosis associated with the presentation includes CLINICAL COUNSELOR, no evidence of Strep pharyngitis Viral syndrome Tonsillitis Lab Data [facility] Lab Attestation statement: I reviewed the patient's lab results. Labs: Lab Results 11/17/24 Range/Units 17:31 COVID-19 (JEVON) Negative (Negative) COVID-19 Clin Com See Note S. pyogenes GrpA GEORGE Positive A (Negative) Discharge Plan Discharge Clinical Impression: Strep pharyngitis Patient Disposition: Home, Self-Care Instructions: Strep Throat (ED) Additional Instructions: Drink plenty of we will fluids. Tylenol or ibuprofen for pain. Amoxicillin as directed. Finish all antibiotics. Follow-up with your primary care provider. Call this week to schedule a follow-up appointment. Return to the emergency department if you have any worsening of symptoms, or any concerns. Get well soon! Prescriptions: New ibuprofen 100 mg/5 mL suspension 400 mg PO .q4 PRN (Reason: fever or pain) Qty: 473 0RF amoxicillin 250 mg/5 mL suspension for reconstitution 500 mg PO TID 10 Days Qty: 300 0RF No Action amoxicillin-pot clavulanate 875-125 mg tablet 1 tab PO Q12H Qty: 14 0RF amoxicillin 250 mg/5 mL suspension for reconstitution 1,000 mg PO Q12H 7 Days Qty: 280 0RF ibuprofen 100 mg/5 mL suspension 400 mg PO Q6H PRN (Reason: fever or pain) Qty: 473 0RF sucralfate [Carafate] 100 mg/mL suspension 5 ml PO QID 7 Days Qty: 140 0RF Rx Instructions: swish in mouth and swallow; use after food/drink ondansetron 4 mg tablet,disintegrating 4 mg PO Q8H PRN (Reason: nausea and vomiting) Qty: 4 0RF Stand Alone Forms: Work/School Release Interventions: ED Discharge Assessment Last Done: 11/17/24 18:39 Discharge Date/Time: 11/17/24 18:40 Print Language: Paraguayan
[2024-11-17] MEDS: Ibuprofen Oral Susp 200 MG/10 ML ORAL.SUSP 600 MG PO (17:27)
--- OUTSIDE RECORDS SUMMARY | 2024-11-17 17:32 | XMS_ITS | Clinical Summary ---
Author Organization [employer] Address [address] [facility] [address] [place] [address] Care Team Providers Care Offset Pressman Name Role Phone Nimo Lopez MD Primary Care Provider Allergies No known active allergies Medications * This document contains information received from the source organization and may not represent a complete record from that organization. loratadine (Claritin) 10 MG tablet Take 1 tablet (10 mg) by mouth Once per day. 90 tablet 5 01/26/20 24 Active Additional Information Patient not taking.Reported on 08/09/2024 diphenhydrAMI NE (BENADryl) 25 MG tablet Take 1 tablet (25 mg) by mouth every 8 (eight) hours if needed for itching or allergies. 30 tablet 11 03/27/19 25 Active Additional Information Patient not taking.Reported on 08/09/2024 norelgestromi n-ethinyl estradiol (Ortho-Evra) 150-35 MCG/24HR Apply 1 patch each week for 3 weeks, then remove for 1 week. 9 patch 12 04/18/19 25 026 Active fluconazole (Diflucan) 150 MG tablet Take 1 tab orally once, can repeat in 1 week 1 tablet 1 04/19/19 25 Active Additional Information Patient not taking.Reported on 08/09/2024 triamcinolone (Kenalog) 0.025 % ointmentIndic ations:Hand dermatitis Apply topically 2 times daily. 80 g 2 07/18/19 25 Active Additional Information Patient not taking.Reported on 08/09/2024 triamcinolone (Kenalog) 0.1 % creamIndicati ons:Hand dermatitis Apply topically if needed in the morning and at bedtime (pain and swelling). 80 g 2 09/05/19 25 Active clobetasol (Temovate) 0.05 % ointmentIndic ations:Lichen sclerosus,Vul dima rash Apply topically 2 times daily. To apply 2 times a day to the affected area x 1 month. 30 g 2 11/16/19 25 Active clobetasol (Temovate) 0.05 % ointmentIndic ations:Lichen sclerosus,Vul dima rash Apply topically 2 times daily. To apply 2 times a day to the affected area x 1 month. 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 Living in penitentiary 12/18/2012 Asthma 05/17/2012 Absence seizure ([facility]) 05/17/2012 Encounters Date Type Department Care Team Description 11/15/2024 Refill [facility] MED & PEDS [address] [place] [address] Nimo Lopez MD Lichen sclerosus; Vulvar rash 09/04/2024 10:15 AM EDT Office Visit [facility] MED & PEDS [address] [place] [address] Omar Mchugh MD Lichen sclerosus (Primary Dx); Hand dermatitis 09/04/2024 Travel from Last 3 Months Immunizations Immunization Administration Dates Next Due DTaP 07/04/2007, 5,2003,07/29,2003 HPV 9-Valent 04/07/2015,10/25/2014 HPV, Quadrivalent 06/09/2012 Hep A, ped/adol, 2 dose 10/25/2014,10/23/2013 Hep B, Adolescent or Pediatric 03/26/2004,2003,2003 Hib (HbOC) 06/30/2004, 4,2003,06/04 IPV 07/04/2007, 5,2003,06/04 Influenza injectable [...] Sign Reading Time Taken Comments Blood Pressure 117/65 09/04/2024 10:24 AM EDT Pulse 81 09/04/2024 10:24 AM EDT Temperature 36.5 C (97.7 F) 09/04/2024 10:24 AM EDT Respiratory Rate 20 09/04/2024 10:24 AM EDT Oxygen Saturation 97% 09/04/2024 10:24 AM EDT Inhaled Oxygen Concentration - - Weight 50.3 kg (111 lb) 09/04/2024 10:24 AM EDT Height 152.4 cm (5') 09/04/2024 10:24 AM EDT Body Mass Index 21.68 09/04/2024 10:24 AM EDT Plan of Treatment Upcoming Encounters Date Type Department Care Team ([facility] st Contact Info) Description 12/18/2024 10:00 AM EST Office Visit [facility] MED & PEDS [address] [place] [address] Omar Mchugh MD [address] [place] [address] Health Maintenance Due Date Last Done Comments HIV Screening 2003 Meningococcal B Vaccine (1 of 2 - Standard) 2019 Hepatitis C Screening 2021 Pneumococcal Vaccine: Pediatrics (0 to 5 Years) and At-Risk Patients (6 to 49) Years (1 of 2 - PCV) 2022 06/30/2004, 2003, 2003, Additional history exists Depression Monitoring 07/26/2024 01/26/2024, 024 COVID-19 Vaccine ( season) 2024 07/10/2020, 06/19/2020 Influenza Vaccine (#1) 2024 , 12/13/2019, 12/07/2018, Additional history exists Alcohol/Substance Use Screening 01/25/2025 01/26/2024 Disability Screening 01/25/2025 01/26/2024 SDOH Screening 01/25/2025 01/26/2024 Dental Oral Exam 02/09/2025 08/09/2024, , 01/03/2015, Additional history exists Dental Prophylaxis 02/09/2025 08/09/2024, 1 04/11/2023, 01/03/2015, Additional history exists Dental X-Ray: Bitewings 02/09/2025 02/09/20, 01/03/2015, 04/17/2014, Additional history exists Family Planning (PISQ) 2025 2024 Chlamydia and Gonorrhea Screening 04/17/2025 04/17/2024, 07/28/2022, 06/04/2021 Tobacco Screening 09/04/2025 09/04/2024 Dental X-Ray: Full Mouth 02/09/2027 024, 12/18/2012, 12/18/2012 Pap Smear 04/18/2027 04/17/2024 DTaP/Tdap/Td Vaccines (8 - Td or Tdap) [...] topic HPV Vaccines Completed 04/07/2015, 10/15, 06/09/2012 RSV under 20 months Aged Out No longe r eligible based on patient's age to complete this topic Rotavirus Vaccines Aged Out No longer eligible based on patient's age to complete this topic Procedures Procedure Name Priority Date/Time Associated Diagnosis Comments PROPHYLAXIS - ADULT Routine 08/09/2024 1 1:00 AM EDT PERIODIC ORAL EVALUATION - ESTABLISHED PATIENT Routine 08/09/2024 11:00 AM EDT PAP SMEAR Routine 04/17/2024 9:15 AM EST Encounter for gynecological examination with Papanicolaou smear of cervix CHLAMYDIA/N. GONORRHOEAE RNA, TMA, UROGENITAL Routine 04/17/2024 9:15 AM EST Encounter for gynecological examination with Papanicolaou smear of cervix INTRAORAL - COMPLETE SERIES OF RADIOGRAPHIC IMAGES Routine 02/09/2024 10:00 AM EST from Last 3 Months or Most Recently Relevant to Health Maintenance Results * Chlamydia/N. Gonorrhoeae RNA, TMA, Urogenitial (04/17/2024 9:15 AM EST) CT PCR NOT DETECTED Not Detect. [facility] Comment:A not detected test result does not exclude the possibilityof infection because test results can be affected byimproper specimen collection, concurrent antibiotic therapy,or the number of organisms in the specimen which may bebelow the sensitivity of the test. As with many diagnostictests, results from the Xpert CT/NG assay should beinterpreted in conjunction with other laboratory andclinical data available to the clinician.Xpert CT/NG performance has not been evaluated in patientsless than 14 years of age. The assay should not be used forthe evaluationof suspected sexual abuse or for other medico-legalindications. Additional testing is recommended in anycircumstance when false positive or false negative resultscould lead to adverse medical, social or psychologicalconsequences. NG PCR NOT DETECTED Not Detect. [facility] Comment:A not detected test result does not exclude the possibilityof infection because test results can be affected byimproper specimen collection, concurrent antibiotic therapy,or the number of organisms in the specimen which may bebelow the sensitivity of the test. As with many diagnostictests, results from the Xpert CT/NG assay should beinterpreted in conjunction with other laboratory andclinical data available to the clinician.Xpert CT/NG performance has not been evaluated in patientsless than 14 years of age. The assay should not be used forthe evaluationof suspected sexual abuse or for other medico-legalindications. Additional testing is recommended in anycircumstance when false positive or false negative resultscould lead to adverse medical, social or psychologicalconsequences. Swab (Vaginal Swab) 04/17/2024 9:15 AM EST 04/17/2024 2:11 PM EST [facility] - 04/18/2024 12:01 PM EST Vaginal us Nimo Lopez MD LAB MICROBIOLOGY - GENERAL OR DERABLES Final Result [facility] [address] [place] [address] [phone] * Pap Smear (04/17/2024 9:15 AM EST) Swab 04/17/2024 9:15 AM EST 04/18/2024 6:50 AM EST [facility] - 04/20/2024 8:19 AM EST ----- ------- Name: Lucas Rich Age/Sex: 19/F : 2005 Unit#: [id number] Attend Dr: Nimo Lopez MD Re04/17/24 Status: DEP REF Location: [facility] Disch: ----- ------- SPEC : [id number] RECD: 04/18/24 STATUS: GÉNESIS WISE NUM: [id number] DANIEL: 04/17/[address] [facility] [address]: Nimo Lopez MD ENTERED: 04/18/24 SP TYPE: Pap Smr OTHR DR: ORDERED: Pap Smear Interpretation Satisfactory for evaluation. Negative for intraepithelial lesion or malignancy. No endocervical cells seen. Clinical Information LMP: 03/21/24 Previous PAP test: First PAP Material Received Cervix ----- ------- Signed (signature on file) EDITA Hay (ASCP) 04/20/24 0819 ----- ------- END OF REPORT us Nimo Lopez MD LAB CYTOLOGY ORDERABLES Final Result [facility] [address] [place] [phone] [phone] from Last 3 Months or Most Recently Relevant to Health Maintenance Insurance [facility] MEDICAID STAND ADULT Care Teams Offset Pressman Relationship Specialty Start Date End Date Nimo Lopez MD [address] [place] [address] OLIVIA Freed [id number] PCP - General Family Medicine 05/20/11
--- OUTSIDE RECORDS SUMMARY | 2024-11-17 17:32 | XMS_ITS | Clinical Summary ---
Author Organization [facility] it Address [address] [place] [address] Care Team Providers Care Patternmaker Plaster And Plastic Name Role Phone Unavailable Primary Care Provider [...] (1 - 3-dose series) 2018 Meningococcal B Vaccine (1 o f 2 - Standard) 2019 DTaP,Tdap,and Td Vaccines (1 - Tdap) 2022 Hepatitis B Vaccines (1 of 3 - 19+ 3-dose series) 2022 Annual Well Child Visit (3-2 1 years old) 03/10/2023 HIV Screening 03/10/2023 Hepatitis C Screening 03/10/2023 Social Influencers of Health Screening 03/10/2023 Depression Screening 02/15/2024 Cervical Cancer Screening: P ap Smear 2024 COVID-19 Vaccine (1 - 2023-2 5 season) 2024 Influenza Vaccine (#1) 2024 RSV Immunization Adult Patie nts (1 - 1-dose 75+ series) 2078 HIB Vaccines Aged Out No longer eligi [...] 5 Years) and At-Risk Patients (6 to 49 Years) Aged Out No longer eligible b ased on patient's age to complete this topic RSV Immunization Patients Un jose enrique 20 months Aged Out No longer eligible b ased on patient's age to complete this topic Varicella Vaccines Aged Out No longer eligible based on patient's age to complete this topic
--- OUTSIDE RECORDS SUMMARY | 2024-11-17 17:32 | XMS_ITS | Encounter Summary ---
Author Organization [employer] Address [address] [place] [address] [place] [address] Care Team Providers Care Anchor Tacker Name Role Phone Nimo Lopez MD Primary Care Provider [phone] Encounter Details Date Type Department Care Team (Late Contact Info) Description 07/02/2022 Orders Only [facility] MED & PEDS [address] [place], [place] [phone] Mriiam Diamond LPN Social History Tobacco Use Types [...] Encounters Date Type Department Care Team (Late Contact Info) Description 12/18/2024 10:00 AM EST Office Visit [facility] [address] [place] [address] Omar Mchugh MD [address] [place] [address] documented as of this encounter Procedures Procedure Name Priority Date/Time Associated Diagnosis Comments INFLUENZA A B2 ID NOW (HENDRICKS) Routine 03/15/2023 2:19 PM EST STREP A NUCLEIC ACID Routine 03/15/2023 2:19 PM EST COVID-19 ID NOW (HENDRICKS) Routine 03/15/2023 2:19 PM EST documented in this encounter Results * Influenza A B2 ID NOW (Hendricks) (03/15/2023 2:19 PM EST) IDNOW SERIAL# [id number] [facility] Influenza A Negative Negative [facility] Influenza B2 Negative Negative [facility] Influenza A B2 Note See Note [facility] Comment:The Hendricks ID NOW In fluenza [...] GENERAL ORDERABLES Final Result Performing Organization Address City/State/[facility] Co de Phone Number [facility] [address] [place] [phone] * COVID-19 ID NOW (HENDRICKS) (03/15/2023 2:19 PM EST) IDNOW SERIAL# [id number] [facility] COVID-19 TEST Negative Negative [facility] COVID-19 NOTE See Note [facility] Comment: Results are for the identification of SARS-CoV2 RNA. TheSARS-CoV2 RNA is generally detectable in respiratory samplesduring the acute phase of infection. Positive results areindicative of the presence of SARS-CoV-2 RNA; clinicalcorrelation with patient history and other diagnosticinformation is necessary to determine patient infectionstatus. Positive results do not rule out bacterial infectionor co- infection with other viruses.Testing facilities within the [facility] and itsterritories are required to report all positive results [...] use by authorized laboratories.Testing performed on the Fwd: Power ID NOW utilizing NAAT. 03/15/2023 2:19 PM EST 03/15/2023 2:46 PM EST Generic External Data Provider LAB MOLECULAR EMELY GNOSTICS ORDERABLES Final Result Performing Organization Address [facility] de Phone Number [facility] [address] [place] [phone] * (ABNORMAL) Strep A Nucleic Acid (03/15/2023 2:19 PM EST) IDNOW SERIAL# [id number] [facility] Strep A Nucleic Acid Positive(A ) Negative [facility] Comment:All test results mus t be [...] GENERAL ORDERABLES Final Result Performing Organization Address [facility] Co de Phone Number [facility] [address] [place] [phone] documented in this encounter Visit Diagnoses Not on filedocumented in this encounter Care Teams Anchor Tacker Relationship Specialty Start Date End Date Nimo Lopez MD [address] [place] [address] PCP - General Family Medicine 05/20/11 documented as of this encounter
--- OUTSIDE RECORDS SUMMARY | 2024-11-17 17:32 | XMS_ITS | Encounter Summary ---
Author Organization [employer] Address [address] [facility] [place] [address] Care Team Providers Care Easement Worker Name Role Phone Nimo Lopez MD Primary Care Provider [phone] Reason for Visit * Reason Onset Date Comments Call Back Request 08/10/2024 Encounter Details Date Type Department Care Team ([facility] Contact Info) Description 08/10/2024 Telephone [facility] [address] [place] [address] Nimo Lopez MD [address] [place] [address] Call Back Request Social History Tobacco Use Types Packs/Day Years [...] encounter Miscellaneous Notes * Telephone Encounter - Dianna Washington RN - 08/13/2024 12:13 PM EDT Telephone call returned to patient in regards to below message. Patient would like to get off birthcontrol, states she is doing better and does not want to continue this method. Reviewed other methods with patient, patient stating she does not want to try any at this time. Denies AUB, recent sexual encounter, and any side effects from medication. Advised will let provider know, patient will stoptaking medication per patient preference. Advised she may have bleeding, weird bleeding pattern, and mood changes for a few month post cessation of BC. Advised to call with any concerns. Patient verbalized understanding and denied having any further questions or concerns at this time. Patient to follow up as needed. * Telephone Encounter - Margarito Ruggiero - 08/10/2024 2:07 PM EDT Tc from pt requesting to be taken off of control. Please contact pt at [phone]. documented in this encounter Plan of Treatment Upcoming Encounters Date Type Department Care Team (Late st Contact Info) Description 12/18/2024 10:00 AM EST Office Visit [facility] & PEDS [address] [place] [address] Omar Mchugh MD [address] [place] [address] documented as of this encounter Visit Diagnoses Not on filedocumented in this encounter Additional Health Concerns Assessment Noted Time PHQ-9 Depression Total Score: 9 01/26/20 24 2:09 PM EST documented as of this encounter Care Teams Easement Worker Relationship Specialty Start Date End Date Nimo Lopez MD [address] [place] [address] PCP - General Family Medicine 05/20/11 documented as of this encounter
--- OUTSIDE RECORDS SUMMARY | 2024-11-17 17:32 | XMS_ITS | Encounter Summary ---
Author Organization [employer] Address [address] [place] [address] Care Team Providers Care Tack Puller Machine Name Role Phone Nimo Lopez MD Primary Care Provider [phone] Reason for Visit * Reason Onset Date Comments Med Refill 11/15/2024 Encounter Details Date Type Department Care Team ([facility] st Contact Info) Description 11/15/[address] [facility] & PEDS [address] [place] [address] Nimo Lopez MD [address] [place] [address] Lichen sclerosus; Vulvar rash Social History Tobacco Use Types [...] encounter Miscellaneous Notes * Telephone Encounter - Mariam Mendenhall LPN - 11/15/2024 2:30 PM EDT Last seen 09.04.24 * Telephone Encounter - Esteban Guzmán - 11/15/2024 2:25 PM EDT TC from pt requesting medication refill. Medications needing refill : clobetasol (Temovate) 0.05 % ointment To be sent to: [facility]/pharmacy #[id number] documented in this encounter Plan of Treatment Upcoming Encounters Date Type Department Care Team (Late st Contact Info) Description 12/18/2024 10:00 AM EST Office Visit [facility] MED & PEDS [address] [place] [address] Omar Mchugh MD [address] [place] [address] documented as of this encounter Visit Diagnoses Diagnosis Lichen sclerosus Circumscribed scleroderma Vulvar rash documented in this encounter Additional Health Concerns Assessment Noted Time PHQ-9 Depression Total Score: 9 01/26/20 24 2:09 PM EST documented as of this encounter Care Teams Tack Puller Machine Relationship Specialty Start Date End Date Nimo Lopez MD [address] [place] [address] PCP - General Family Medicine 05/20/11 documented as of this encounter
[2024-11-17 18:03] LABS: COVID-19 Test Negative (Negative); IDNOW Serial# 55D5AD1C; IDNOW Serial# 58CA691E; Strep A Nucleic Acid Positive (Negative)
[2024-11-17] MEDS: Amoxicillin Oral Susp 400 mg/5 mL 75 mL SUSP.RECON 500 MG PO (18:35)
[2024-11-17 18:39] VITALS: BP 118/57; PULSE 117; RESP 20; TEMP 36.8; O2SAT 100
== END 2024-11-17 18:40 | disposition home or self-care (01) ==
PROVIDERS: Physician Assistant; Emergency Provider Student in an Organized Health Care Education/Training Program; PCP Pediatrics
DX: J02.0 Streptococcal pharyngitis (principal); R50.9 Fever, unspecified; Z11.52 Encounter for screening for COVID-19
CPT/HCPCS: 87635; 87651; 99283